=== PATIENT | male | born 1990 | race Caucasian/White ===

== ENCOUNTER → 2016-07-17 | Outpatient (CLI) | payer OTHER ==
[~2016-07-17] VITALS: Ht 170.2 cm; Wt 64.9 kg
[~2016-07-17] MED LIST: BUPR15TA PO; GLYCOPYRROLATE INJ 0.2 MG/ML 2 ML VIAL As Ordered ONE; KETOROLAC 60 MG/2 ML VIAL (J1885) As Ordered ONE; LIDOCAINE 2% INJ 100 MG/5 ML SDV (FOR ANES.) As Ordered ONE; MIDAZOLAM INJ 2 MG/2 ML VIAL (J2250) As Ordered ONE; NAPR500T2 PO; NS 1,000 ML IV SCH; OMEP10CASR PO; ONDANSETRON 4MG/2ML VIAL (J2405) As Ordered ONE; PERCOCET 5MG/325MG TAB As Ordered ONE; PROPOFOL 200 MG/20 ML VIAL As Ordered ONE; fentaNYL 100 MCG/2 ML INJECTION (J3010) As Ordered ONE
--- NOTE | 2016-07-17 14:42 | ROOR ---
Patient Name: Max Zhang Procedure Date: 07/17/2016 9:04 AM Date of : 1990 Age: 25 Room: [id number] Gender: Male Note Status: Finalized Procedure: Colonoscopy Indications: Generalized abdominal pain, Change in stool caliber, Constipation Providers: Douglas PIRES MD Referring MD: AARON RESENDIZ MD Requesting Provider: Medicines: Monitored Anesthesia Care Complications: No immediate complications. Procedure: Pre-Anesthesia Assessment: - The heart rate, respiratory rate, oxygen saturations, blood pressure, adequacy of pulmonary ventilation, and response to care were monitored throughout the procedure. The Colonoscope was introduced through the anus and advanced to 3 cm into the ileum. The colonoscopy was performed without difficulty. The patient tolerated the procedure well. The quality of the bowel preparation was good. Findings: The perianal and digital rectal examinations were normal. The terminal ileum appeared normal. Mucosa appears mildly erythematous. Biopsies were taken with a cold forceps for histology. The entire colon appeared otherwise normal on direct and retroflexion views. Impression: - The examined portion of the ileum was normal. - Mildly erythematous mucosa in the entire. Biopsied. - Small internal hemorrhoids. - The entire examined colon is otherwise normal on direct and retroflexion views. Recommendation: - Telephone endoscopist for pathology results in 2 weeks. Douglas Pires MD Douglas PIRES MD 07/17/2016 2:42:09 PM This report has been signed electronically. Number of Addenda: 0 Note Initiated On: 07/17/2016 9:04 AM Estimated Blood Loss: Estimated blood loss: none.
[2016-07-17 15:18] VITALS: BP 138/73
== END ==
LOC: M OPP 12:21
PROVIDERS: ATTEND Internal Medicine Gastroenterology
DX: R10.84 Generalized abdominal pain (principal); R19.5 Other fecal abnormalities; K59.00 Constipation, unspecified; K62.89 Other specified diseases of anus and rectum; K63.89 Other specified diseases of intestine; K64.8 Other hemorrhoids; Z72.0 Tobacco use; K21.9 Gastro-esophageal reflux disease without esophagitis; F32.9 Major depressive disorder, single episode, unspecified; Z79.899 Other long term (current) drug therapy

== ENCOUNTER 2016-12-28 10:56 | Emergency (ER) | payer OTHER ==
[~2016-12-28] VITALS: Ht 170.2 cm; Wt 58.9 kg
[~2016-12-28 10:56] MED LIST changes: -GLYCOPYRROLATE INJ 0.2 MG/ML 2 ML VIAL As Ordered ONE; -KETOROLAC 60 MG/2 ML VIAL (J1885) As Ordered ONE; -LIDOCAINE 2% INJ 100 MG/5 ML SDV (FOR ANES.) As Ordered ONE; -MIDAZOLAM INJ 2 MG/2 ML VIAL (J2250) As Ordered ONE; -NAPR500T2 PO; +NAPR500T3 PO; -NS 1,000 ML IV SCH; -ONDANSETRON 4MG/2ML VIAL (J2405) As Ordered ONE; -PERCOCET 5MG/325MG TAB As Ordered ONE; -PROPOFOL 200 MG/20 ML VIAL As Ordered ONE; -fentaNYL 100 MCG/2 ML INJECTION (J3010) As Ordered ONE
--- NOTE | 2016-12-28 12:55 | REP ---
Clinical: Trauma . Technique: AP, lateral, bilateral oblique views left ankle . Findings: No acute fracture or dislocation. Skeletal structures and joint spaces are intact and normal. Ankle mortise appears stable. No subcutaneous emphysema or radiodense foreign body. Impression: Normal left ankle radiograph series. No acute fracture or dislocation. Signed by Jonny Naidu MD 12/28/2016 12:47 P
[2016-12-28 13:22] VITALS: BP 130/60
[2016-12-28] MEDS ORDERED: TYLE325T5 PO (13:31)
[2016-12-28] MEDS ORDERED: NAPR500T3 PO (13:32)
[2016-12-28] MEDS ORDERED: KETOROLAC 60 MG/2 ML VIAL (J1885) IM ONE (13:45)
== END 2016-12-28 14:14 | disposition home or self-care (01) ==
LOC: M ED 10:56
DX: S93.402A Sprain of unspecified ligament of left ankle, initial encounter (principal); X58.XXXA Exposure to other specified factors, initial encounter; Y92.89 Other specified places as the place of occurrence of the external cause; Y93.89 Activity, other specified; Y99.8 Other external cause status; F17.200 Nicotine dependence, unspecified, uncomplicated

== ENCOUNTER 2016-12-29 06:23 | Inpatient (IN) | payer OTHER ==
[~2016-12-29] VITALS: Ht 170.2 cm; Wt 59.1 kg
[~2016-12-29 06:23] MED LIST changes: +TYLE325T5 PO
[2016-12-29 06:57] LABS: MEAN CORPUSCULAR HEMOGLOBIN 32.7 pg (27.0-33.0); MEAN CORPUSCULAR HGB CONC 34.6 g/dl (32.0-36.5); MEAN CORPUSCULAR VOLUME 94.5 fl (80.0-96.0); RED CELL DISTRIBUTION WIDTH 12.3 % (11.5-14.5); WHITE BLOOD COUNT 13.2 K/mm3 (4.0-10.0)
[2016-12-29 07:28] LABS: METHADONE URINE NEGATIVE (NEGATIVE)
[2016-12-29 07:31] LABS: ALBUMIN 4.3 GM/DL (3.2-5.2); ALBUMIN/GLOBULIN RATIO 1.19 (1.00-1.93); ALKALINE PHOSPHATASE 95 U/L (45-117); ALT/SGPT 31 U/L (12-78); ANION GAP 9 MEQ/L (8-16); AST/SGOT 34 U/L (15-37); BILIRUBIN,DIRECT 0.1 MG/DL (0.0-0.2); BILIRUBIN,TOTAL 0.4 MG/DL (0.2-1.0); BLOOD UREA NITROGEN 21 MG/DL (7-18); CALCIUM LEVEL 9.5 MG/DL (8.5-10.1); CARBON DIOXIDE LEVEL 25 MEQ/L (21-32); CHLORIDE LEVEL 107 MEQ/L (98-107); CREATININE FOR GFR 0.98 MG/DL (0.70-1.30); GLOMERULAR FILTRATION RATE > 60.0 (>60); GLUCOSE, FASTING 90 MG/DL (70-105); POTASSIUM SERUM 3.5 MEQ/L (3.5-5.1); SODIUM LEVEL 141 MEQ/L (136-145); TOTAL PROTEIN 7.9 GM/DL (6.4-8.2)
--- NOTE | 2016-12-29 07:39 | REP ---
Clinical: Pain . Technique: AP, lateral, bilateral oblique views. Findings: No acute fracture or dislocation. Skeletal structures and joint spaces are intact and normal. Ankle mortise appears stable. No subcutaneous emphysema or radiodense foreign body. Impression: Normal left ankle radiograph series. Signed by Jonny Naidu MD 12/29/2016 07:31 A
[2016-12-29] MEDS ORDERED: MAALOX 30 ML SUSP *UDC PO PRN (08:30)
[2016-12-29] MEDS ORDERED: MOM 30ML SUSPENSION UDC PO PRN (08:30)
[2016-12-29] MEDS ORDERED: QUEtiapine FUMARATE 200 MG TAB PO ONE (09:00)
[2016-12-29] MEDS ORDERED: LORazepam 0.5 MG TAB PO ONE (09:30)
[2016-12-29 11:23] VITALS: BP 136/90
[2016-12-29] MEDS: NICOTINE 21MG/24HR 1 EA TRANSDERMAL TD SCH (12:27)
[2016-12-29] MEDS: QUEtiapine FUMARATE 200 MG TAB PO SCH ×3 (12:35→20:51)
[2016-12-29 18:00] VITALS: BP 126/58
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
[2016-12-30 06:27] VITALS: BP 148/91
[2016-12-30] MEDS: NICOTINE 21MG/24HR 1 EA TRANSDERMAL TD SCH (06:37)
--- NOTE | 2016-12-30 08:33 | HPEPDOC ---
Medical History and Physical Date of Admission Dec 29, 2016 at 08:26 History and Physical PCP: [facility] ATTENDING: Dr. Douglas Acevedo HPI: 26yoM admitted to [facility] for unspecified psychotic disorder, being medically examined today. The patient was evaluated in the emergency department 12/28/16 related to twisting his left ankle. X-ray of the left ankle was unremarkable. Aircast was recommended with outpatient follow-up with PCP. The patient has been ambulating and is bearing weight. Denies any fevers, chills, weakness, fatigue, EUCEDA, CP, SOB, cough, palpitations, abdominal pain, N/V/D or changes in bowel or bladder habits. PMHx: ADHD Anxiety Depression History of SI Substance use Tobacco use History of left ankle injury in the past related to skateboarding. Recurrent left ankle injury 12/22/16. PSHX: Adenoidectomy Tympanostomy tubes SOCHX: Resides in: [facility], living with his mother. Marital Status: Single Kids: None Employment: [employer] Tobacco use: 2 packs per day ETOH: Twice per week 3 drinks Illicit Drugs: Marijuana daily. Cocaine in the past. IV Drug Use: Denies Tattoos done unprofessionally: 1 FAMHX: Mother: Alive, well. Father: Unknown Siblings: 1 brother Alive, depression Children: None Unexpected deaths due to medical reasons: None. ROS: As noted in HPI, otherwise 11pt ROS of systems reviewed and unremarkable. PE: GEN: 26 yo M, appears stated age. Well-nourished, well developed. No acute distress. Alert and oriented x 3. Avoids eye contact. Rapid pressured speech. Tangential. HEENT: Normocephalic, atraumatic. Pupils are equal, round, and reactive to light. Extraocular movements are intact. No nystagmus appreciated. Sclera are nonicteric. Conjunctiva without injection. Nose midline. Nasal turbinates without bogginess. EACs both patent BL. TMs both visualized and germain with good cone of light, no bulging or erythema. No facial asymmetry. Moist mucous membranes. Dentition fair. Pharynx pink and moist, no cobblestoning. Neck supple , trachea midline. No lymphadenopathy or thyromegaly appreciated. CHEST: Regular rate and rhythm, +S1, +S2 LUNGS: Clear to auscultation bilaterally. No wheezes, rales, or rhonchi. Breathing appears symmetric and easy. Patient is speaking in full sentences. No accessory muscle use. ABD: Round, soft, non-tender, non-distended. +Bowel sounds throughout. No rebound or guarding. No costovertebral angle tenderness. EXT: Pulses 2+ bilaterally dorsalis pedis and radial. No lower extremity edema appreciated. Mild left inner ankle discomfort with palpation. No erythema. No edema. No ecchymosis noted. SKIN: Jay, dry, warm. Capillary refill <2sec. No rashes. NEURO: Alert and oriented x 3. Cranial nerves III-XII are intact. No focal deficits appreciated. EKG: pending. XR left ankle. Normal left ankle radiograph series A&P: 26yoM admitted to [facility] for unspecified psychotic disorder 1. Psych. Plan per Psychiatry. Obtain baseline EKG to assure the safety of psychiatric medications as they can prolong the QT interval. 2. Nicotine dependence. Patch available. 3. Recent left ankle sprain. Apply Aircast. Elevate if needed. Apply ice if needed. Pt states he cannot tolerate Tylenol or NSAID. 4. Follow up with PCP on discharge. 5. Substance use. Per psychiatry. 6. Leukocytosis. Patient is afebrile. Asymptomatic. Recheck CBC in a.m. 7. History of tattoo done unprofessionally. Patient agrees to HIV and hepatitis screening. 8. [place] health safety engineer present throughout exam. Vital Signs Vital Signs Date Time Temp Pulse Resp B/P (MAP) Pulse Ox O2 Delivery O2 Flow Rate FiO2 12/30/16 06:27 97.4 94 20 148/91 (110) 12/29/16 09:45 97 Room Air Laboratory Data Labs 24H Item Value Date Time Sodium Level 141 MEQ/L 12/29/16 0646 Potassium Level 3.5 MEQ/L 12/29/16 0646 Chloride Level 107 MEQ/L 12/29/16 0646 Carbon Dioxide Level 25 MEQ/L 12/29/16 0646 Anion Gap 9 MEQ/L 12/29/16 0646 Blood Urea Nitrogen 21 MG/DL H 12/29/16 0646 Creatinine 0.98 MG/DL 12/29/16 0646 Glomerular Filtration Rate > 60.0 12/29/16 0646 Fasting Glucose 90 MG/DL 12/29/16 0646 Calcium Level 9.5 MG/DL 12/29/1646 Total Bilirubin 0.4 MG/DL 12/29/1646 Direct Bilirubin 0.1 MG/DL 12/29/16 0646 Aspartate Amino Transf (AST/SGOT) 34 U/L 12/29/16 0646 Alanine Aminotransferase (ALT/SGPT) 31 U/L 12/29/16 0646 Alkaline Phosphatase 95 U/L 12/29/16 0646 Total Protein 7.9 GM/DL 12/29/1646 Albumin 4.3 GM/DL 12/29/16 0646 Albumin/Globulin Ratio 1.19 12/29/16 0646 Thyroid Stimulating Hormone (TSH) 1.840 uIU/ML 12/29/16 0646 White Blood Count 13.2 K/mm3 H 12/29/16 0646 Red Blood Count 4.84 M/mm3 12/29/16 0646 Hemoglobin 15.8 g/dl 12/29/16 0646 Hematocrit 45.7 % 12/29/1646 Mean Corpuscular Volume 94.5 fl 12/29/16 0646 Mean Corpuscular Hemoglobin 32.7 pg 12/29/1646 Mean Corpuscular Hemoglobin Concent 34.6 g/dl 12/29/16 0646 Red Cell Distribution Width 12.3 % 12/29/16 0646 Platelet Count 351 k/mm3 12/29/16 0646 Salicylates Level 3.7 MG/DL L 12/29/1646 Urine Opiates Screen NEGATIVE 12/29/1638 Urine Methadone Screen NEGATIVE 12/29/1638 Acetaminophen Level < 2.0 UG/ML L 12/29/1646 Urine Barbiturates Screen NEGATIVE 12/29/1638 Urine Phencyclidine Screen NEGATIVE 12/29/1638 Urine Amphetamines Screen NEGATIVE 12/29/1638 Urine Benzodiazepines Screen NEGATIVE 12/29/1638 Urine Cocaine Metabolite Screen NEGATIVE 12/29/1638 Urine Cannabinoids Screen POSITIVE H 12/29/1638 Ethyl Alcohol Level < 0.003 % 12/29/16 0646 Home Medications No Active Prescriptions or Reported Meds Allergies Coded Allergies: Acetaminophen (Verified Adverse Reaction, Mild, NAUSEA, 12/29/16) Ibuprofen (Verified Adverse Reaction, Mild, NAUSEA, 12/29/16) Naproxen (Verified Adverse Reaction, Mild, NAUSEA, 12/29/16) Peggy Ware Dec 30, 2016 08:33
[2016-12-30] MEDS ORDERED: QUEtiapine FUMARATE 100 MG TAB PO SCH (09:00)
[2016-12-30 09:42] LABS: MEAN CORPUSCULAR HEMOGLOBIN 33.1 pg (27.0-33.0); MEAN CORPUSCULAR HGB CONC 34.6 g/dl (32.0-36.5); MEAN CORPUSCULAR VOLUME 95.5 fl (80.0-96.0); RED CELL DISTRIBUTION WIDTH 12.2 % (11.5-14.5); WHITE BLOOD COUNT 10.8 K/mm3 (4.0-10.0)
[2016-12-30] MEDS: OLANZapine 5 MG TAB PO PRN ×3 (10:24→22:45)
[2016-12-30] MEDS: NICOTINE POLACRILEX 2 MG GUM PO PRN ×2 (11:58→16:04)
[2016-12-30] MEDS: LIDOCAINE 5% (LIDODERM) PATCH TD SCH (11:59)
[2016-12-30] MEDS: QUEtiapine FUMARATE 200 MG TAB PO SCH ×3 (13:33→20:39)
[2016-12-30] MEDS ORDERED: QUEtiapine FUMARATE 200 MG TAB PO SCH ×2 (16:00→21:00)
[2016-12-30 18:00] VITALS: BP 130/68
[2016-12-30] MEDS: **NOTE PATIENT COMMENT** MISC XX SCH (21:00)
[2016-12-30] MEDS: traZODone 50 MG TAB PO PRN (22:45)
--- NOTE | 2016-12-30 23:15 | ECGEPIP ---
Stationary ECG Study 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 Electronically Signed On 12-30-2016 23:15:09 EDT by Douglas Torres
[2016-12-31] MEDS: NICOTINE POLACRILEX 2 MG GUM PO PRN ×2 (02:41→09:00)
[2016-12-31] MEDS: OLANZapine 5 MG TAB PO PRN ×3 (02:45→19:52)
[2016-12-31 06:21] VITALS: BP 139/99
[2016-12-31] MEDS: DIVALPROEX 250MG *ER* TAB PO SCH ×2 (09:00→20:41)
[2016-12-31] MEDS: LIDOCAINE 5% (LIDODERM) PATCH TD SCH (09:00)
[2016-12-31] MEDS: PALIPERIDONE 6 MG ER TAB (INVEGA) PO SCH (09:00)
[2016-12-31] MEDS: LORazepam 1 MG TAB PO SCH ×3 (09:44→20:41)
[2016-12-31] MEDS: NICOTINE 21MG/24HR 1 EA TRANSDERMAL TD SCH (10:24)
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
[2016-12-31 18:00] VITALS: BP 137/82
[2016-12-31] MEDS: PALIPERIDONE 3 MG ER TAB (INVEGA) PO SCH (20:41)
[2016-12-31] MEDS: **NOTE PATIENT COMMENT** MISC XX SCH (20:42)
[2016-12-31] MEDS: traZODone 50 MG TAB PO PRN (21:44)
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
[2017-01-01] MEDS: OLANZapine 5 MG TAB PO PRN ×2 (01:53→10:00)
[2017-01-01] MEDS: NICOTINE 21MG/24HR 1 EA TRANSDERMAL TD SCH (06:03)
[2017-01-01 07:00] VITALS: BP 128/74
[2017-01-01] MEDS: DIVALPROEX 250MG *ER* TAB PO SCH ×2 (08:11→20:27)
[2017-01-01] MEDS: LORazepam 1 MG TAB PO SCH ×4 (08:11→20:27)
[2017-01-01] MEDS: PALIPERIDONE 6 MG ER TAB (INVEGA) PO SCH (08:11)
[2017-01-01] MEDS: LIDOCAINE 5% (LIDODERM) PATCH TD SCH (08:12)
[2017-01-01 18:00] VITALS: BP 125/76
[2017-01-01] MEDS: QUEtiapine FUMARATE 25 MG TAB PO SCH (20:27)
[2017-01-01] MEDS: PALIPERIDONE 3 MG ER TAB (INVEGA) PO SCH (20:28)
[2017-01-01] MEDS: **NOTE PATIENT COMMENT** MISC XX SCH (20:29)
[2017-01-02] MEDS: OLANZapine 5 MG TAB PO PRN ×2 (05:33→09:44)
[2017-01-02 07:10] VITALS: BP 113/67
[2017-01-02 07:23] VITALS: BP 113/67
[2017-01-02] MEDS: LIDOCAINE 5% (LIDODERM) PATCH TD SCH (08:18)
[2017-01-02] MEDS: PALIPERIDONE 6 MG ER TAB (INVEGA) PO SCH (08:19)
[2017-01-02] MEDS: DIVALPROEX 250MG *ER* TAB PO SCH ×2 (08:19→20:19)
[2017-01-02] MEDS: LORazepam 1 MG TAB PO SCH ×4 (08:20→20:18)
[2017-01-02] MEDS: NICOTINE 21MG/24HR 1 EA TRANSDERMAL TD SCH (08:20)
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
--- NOTE | 2017-01-02 15:34 | MHIPNPDOC ---
[facility] Progress Note Progress Note DATE OF SERVICE: 01/02/17 INTERVAL HISTORY: Medication Side effects: Patient reports feeling better since he has been on his medications. He says he is beginning to think that what is important is to take care of himself instead of going back to another relationship or to the previous one, because he could get hurt Behavior: Patient has been less intrusive, less loud and he hasn't made sexually inappropriate comments to staff or peers. Group Attendance: He has been attending groups and he feels better at the activity group. Psychiatric Symptom change: He speech is slightly less pressured, he has less psychomotor agitation, he is able to sit still for longer periods of time, he still has racing thoughts but they are less intense and less rapid, he is less grandiose and less impulsive. VITAL SIGNS: See below. NEW TEST RESULTS: See below CURRENT MEDICATIONS: See below. MENTAL STATUS EXAMINATION: General: Alert, cooperative with interview, with good eye contact, good rapport , dressed in personal clothes with good hygiene Speech: Pressure speech, circumstantial Thought processes: Slightly disorganized Thought content: Perseveres about his failed relationship Abstract reasoning, and computation: Unable to assess at this time due to patient's mental status Description of associations: There is some loosening of associations Description of abnormal or psychotic thoughts: He still has grandiose delusions but they're less intense and less frequent. Has magical thinking, denies current auditory or visual hallucinations and denies suicidal or homicidal thoughts. Judgment: Poor Insight: Poor Orientation: Oriented 3 Recent and remote memory: Intact Attention span and concentration: Limited Fund of knowledge: Fair Mood: Less expansive, slightly depressed. Affect: Labile DIAGNOSES: 1. Bipolar disorder, mixed episode. 2. Rule out personality disorder. 3. . ASSESSMENT: Patient has had a good response to medications, we will decrease Depakote slightly and will obtain blood for liver profile, lipase and amylase. Patient is improving, he is becoming more insightful. MANAGEMENT PLAN: Medications: Depakote 750 mg by mouth twice a day but will decrease on Thursday to 500 mg by mouth every morning and 750 mg by mouth daily at bedtime. Will continue with paliperidone 6 mg by mouth daily at bedtime and 3 mg by mouth every morning will continue with Ativan 1 mg by mouth 3 times a day for anxiety and agitation, Zyprexa 5 mg by mouth every 4 hours when necessary for anxiety and agitation. Psychotherapy: Will encourage group attendance Social: Patient is improving his social skills. He hasn't been inappropriate with staff or with peers. Misc: -- Disposition: Patient will need more time at the inpatient mental health unit for individual and group psychotherapy for medications to improve. TIME SPENT: 30 minutes. Vital Signs Vital Signs Date Time Temp Pulse Resp B/P (MAP) Pulse Ox O2 Delivery O2 Flow Rate FiO2 01/02/17 07:23 98.8 96 20 113/67 (82) 12/29/16 09:45 97 Room Air Current Medications Current Medications Al Hydrox/Mg Hydrox/Simethicone (Mylanta) 30 ml Q4HP PRN PO HEARTBURN/ INDIGESTION; Start 12/29/16 at 08:30; Stop 01/28/17 at 08:29 Aripiprazole (AbiLIFY) 2.5 mg QAM PO Last administered on 12/30/16 08:01; Start 12/30/16 at 09:00; Stop 12/30/16 at 11:41; Status DC Divalproex Sodium (Depakote Er) 750 mg BID PO Last administered on 01/02/17 08 :19; Start 12/31/16 at 09:00; Stop 01/30/17 at 08:59 Home Med (Med Rec Complete!) ASDIRECTED XX ; Start 12/29/16 at 08:30; Stop 04/07 at 08:30; Status DC Lidocaine (Lidoderm Patch) 1 patch DAILY TD Last administered on 12/30/16 11: 59; Start 12/30/16 at 09:00; Stop 01/29/17 at 08:59 Lorazepam (Ativan) 1 mg QID PO Last administered on 01/02/17 13:22; Start at 13:00; Stop 01/07/17 at 08:59 Lorazepam (Ativan) 1 mg TID PO Last administered on 01/01/17 08:11; Start 06/07 at 09:00; Stop 01/01/17 at 10:18; Status DC Magnesium Hydroxide (Milk Of Magnesia) 30 ml DAILYPRN PRN PO CONSTIPATION; Start 12/29/16 at 08:30; Stop 01/28/17 at 08:29 Nicotine (Nicoderm Cq 21mg) 1 patch DAILY TD Last administered on 12/30/16 06: 37; Start 12/29/16 at 09:00; Stop 12/30/16 at 11:45; Status DC Nicotine (Nicoderm Cq 21mg) 1 patch DAILY TD Last administered on 01/02/17 08: 20; Start 12/31/16 at 09:00; Stop 01/30/17 at 08:59 Nicotine (Nicorette) 2 mg Q4HP PRN PO NICOTINE WITHDRAWAL Last administered on 12/31/16 09:00; Start 12/30/16 at 11:45; Stop 12/31/16 at 10:16; Status DC Non-Formulary Medication ( See Comment Field Below ) REMOVE LIDODERM PATCH DAILY@21 XX ; Start 12/30/16 at 21:00; Stop 01/29/17 at 20:59 Olanzapine (ZyPREXA) 5 mg Q4HP PRN PO AGITATION Last administered on 01/02/17 09:44; Start 12/29/16 at 08:30; Stop 01/28/17 at 08:29 Paliperidone (Invega) 3 mg QHS PO Last administered on 01/01/17 20:28; Start 12/31/16 at 21:00; Stop 01/30/17 at 20:59 Paliperidone (Invega) 6 mg DAILY PO Last administered on 01/02/17 08:19; Start 12/31/16 at 09:00; Stop 01/30/17 at 08:59 Quetiapine Fumarate (SEROquel) 75 mg QHS PO Last administered on 01/01/17 20: 27; Start 01/01/17 at 21:00; Stop 01/31/17 at 20:59 Quetiapine Fumarate (SEROquel) 100 mg TID PO Last administered on 12/30/16 08: 28; Start 12/30/16 at 09:00; Stop 12/30/16 at 11:39; Status DC Quetiapine Fumarate (SEROquel) 200 mg QHS PO ; Start 12/30/16 at 21:00; Stop 04/07 at 20:59; Status Cancel Quetiapine Fumarate (SEROquel) 200 mg QID PO Last administered on 12/30/16 20: 39; Start 12/30/16 at 13:00; Stop 12/31/16 at 08:55; Status DC Quetiapine Fumarate (SEROquel) 200 mg TID PO Last administered on 12/29/16 20: 51; Start 12/29/16 at 09:00; Stop 12/29/16 at 23:03; Status DC Quetiapine Fumarate (SEROquel) 200 mg TID PO ; Start 12/30/16 at 16:00; Stop 04/07 at 15:59; Status Cancel Trazodone HCl (Desyrel) 50 mg QHSP PRN PO INSOMNIA Last administered on 21:44; Start 12/29/16 at 08:30; Stop 01/01/17 at 10:18; Status DC Allergies Coded Allergies: Acetaminophen (Verified Adverse Reaction, Mild, NAUSEA, 12/29/16) Ibuprofen (Verified Adverse Reaction, Mild, NAUSEA, 12/29/16) Naproxen (Verified Adverse Reaction, Mild, NAUSEA, 12/29/16) REG TITUS MD Jan 02, 2017 15:34
[2017-01-02 18:00] VITALS: BP 126/71
[2017-01-02] MEDS: QUEtiapine FUMARATE 25 MG TAB PO SCH (20:18)
[2017-01-02] MEDS: PALIPERIDONE 3 MG ER TAB (INVEGA) PO SCH (20:18)
[2017-01-02] MEDS: **NOTE PATIENT COMMENT** MISC XX SCH (20:19)
[2017-01-03] MEDS: OLANZapine 5 MG TAB PO PRN ×3 (00:24→19:41)
[2017-01-03 06:32] VITALS: BP 121/67
[2017-01-03] MEDS: LIDOCAINE 5% (LIDODERM) PATCH TD SCH (08:28)
[2017-01-03] MEDS: NICOTINE 21MG/24HR 1 EA TRANSDERMAL TD SCH (08:30)
[2017-01-03] MEDS: DIVALPROEX 250MG *ER* TAB PO SCH ×2 (08:30→21:31)
[2017-01-03] MEDS: PALIPERIDONE 6 MG ER TAB (INVEGA) PO SCH (08:30)
[2017-01-03] MEDS: LORazepam 1 MG TAB PO SCH ×4 (08:30→21:29)
[2017-01-03 18:00] VITALS: BP 117/77
[2017-01-03] MEDS: **NOTE PATIENT COMMENT** MISC XX SCH (21:00)
[2017-01-03] MEDS: QUEtiapine FUMARATE 25 MG TAB PO SCH (21:29)
[2017-01-03] MEDS: PALIPERIDONE 3 MG ER TAB (INVEGA) PO SCH (21:29)
[2017-01-04 06:19] VITALS: BP 126/79
[2017-01-04] MEDS: OLANZapine 5 MG TAB PO PRN ×2 (06:41→11:49)
[2017-01-04] MEDS: LIDOCAINE 5% (LIDODERM) PATCH TD SCH (08:12)
[2017-01-04] MEDS: NICOTINE 21MG/24HR 1 EA TRANSDERMAL TD SCH (08:14)
[2017-01-04] MEDS: LORazepam 1 MG TAB PO SCH ×4 (08:14→21:36)
[2017-01-04] MEDS: PALIPERIDONE 6 MG ER TAB (INVEGA) PO SCH (08:14)
[2017-01-04] MEDS: DIVALPROEX 250MG *ER* TAB PO SCH ×2 (08:14→21:36)
[2017-01-04] MEDS: NYSTATIN 500,000 U/5 ML SUSP UDC SS SCH ×2 (11:23→17:02)
[2017-01-04 18:00] VITALS: BP 125/68
[2017-01-04] MEDS: **NOTE PATIENT COMMENT** MISC XX SCH (21:00)
[2017-01-04] MEDS: PALIPERIDONE 3 MG ER TAB (INVEGA) PO SCH (21:36)
[2017-01-04] MEDS: QUEtiapine FUMARATE 25 MG TAB PO SCH (21:36)
[2017-01-05] MEDS: NYSTATIN 500,000 U/5 ML SUSP UDC SS SCH ×5 (05:36→23:09)
[2017-01-05 06:00] VITALS: BP 125/68
[2017-01-05] MEDS: LORazepam 1 MG TAB PO SCH ×2 (07:47→12:01)
[2017-01-05] MEDS: PALIPERIDONE 6 MG ER TAB (INVEGA) PO SCH (07:47)
[2017-01-05] MEDS: NICOTINE 21MG/24HR 1 EA TRANSDERMAL TD SCH (07:48)
[2017-01-05] MEDS: DIVALPROEX 250MG *ER* TAB PO SCH ×2 (07:48→21:13)
[2017-01-05] MEDS: LIDOCAINE 5% (LIDODERM) PATCH TD SCH (07:50)
[2017-01-05] MEDS: OLANZapine 5 MG TAB PO PRN (16:30)
[2017-01-05 18:00] VITALS: BP 141/97
[2017-01-05] MEDS: NICOTINE POLACRILEX 2 MG GUM PO PRN (18:58)
[2017-01-05 19:49] LABS: ALBUMIN 3.9 GM/DL (3.2-5.2); ALBUMIN/GLOBULIN RATIO 1.18 (1.00-1.93); BILIRUBIN,DIRECT 0.1 MG/DL (0.0-0.2); BILIRUBIN,TOTAL 0.4 MG/DL (0.2-1.0); TOTAL PROTEIN 7.2 GM/DL (6.4-8.2)
[2017-01-05] MEDS: **NOTE PATIENT COMMENT** MISC XX SCH (21:00)
[2017-01-05] MEDS: QUEtiapine FUMARATE 25 MG TAB PO SCH (21:13)
[2017-01-05] MEDS: PALIPERIDONE 3 MG ER TAB (INVEGA) PO SCH (21:13)
[2017-01-06] MEDS: NICOTINE POLACRILEX 2 MG GUM PO PRN ×4 (06:22→19:48)
[2017-01-06] MEDS: NYSTATIN 500,000 U/5 ML SUSP UDC SS SCH ×4 (06:22→23:09)
[2017-01-06 06:42] VITALS: BP 124/70
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
[2017-01-06] MEDS: DIVALPROEX 250MG *ER* TAB PO SCH ×2 (08:03→20:45)
[2017-01-06] MEDS: PALIPERIDONE 6 MG ER TAB (INVEGA) PO SCH (08:03)
[2017-01-06] MEDS: LIDOCAINE 5% (LIDODERM) PATCH TD SCH (08:46)
[2017-01-06] MEDS ORDERED: LORazepam 0.5 MG TAB PO PRN (09:00)
[2017-01-06 10:53] LABS: ALBUMIN 4.1 GM/DL (3.2-5.2); ALBUMIN/GLOBULIN RATIO 1.14 (1.00-1.93); ALKALINE PHOSPHATASE 91 U/L (45-117); ALT/SGPT 21 U/L (12-78); AMYLASE 65 U/L (25-115); AST/SGOT 10 U/L (15-37); BILIRUBIN,DIRECT < 0.1 MG/DL (0.0-0.2); BILIRUBIN,TOTAL 0.4 MG/DL (0.2-1.0); TOTAL PROTEIN 7.7 GM/DL (6.4-8.2)
[2017-01-06] MEDS: OLANZapine 5 MG TAB PO PRN (16:12)
[2017-01-06 18:00] VITALS: BP_SYST 130
--- NOTE | 2017-01-06 20:25 | IPN ---
DATE: 01/06/2017 26-year-old male with history of bipolar disorder, manic episode. CURRENT MEDICATIONS: - lorazepam 0.5 mg by mouth twice a day - olanzapine 5 mg by mouth every 4 hours for agitation - paliperidone 3 mg by mouth nightly - paliperidone 6 mg by mouth every morning - Seroquel 75 mg by mouth daily - Depakote ER 750 mg by mouth twice a day MENTAL STATUS EXAMINATION: The patient is alert, oriented to self and person, cooperative and pleasant. He has good eye contact, his speech is less pressured and less rapid. His thought process is more organized, less incoherent. His thought content is more goal directed and more centered in reality. Abstract reasoning and computation is fair. Description of associations: Loose but not as much as they were before. Description of abnormal or psychotic thoughts: He has a little bit of grandiose delusions, but his paranoid delusions have decreased and he is not responding to internal stimuli, he denies auditory or visual hallucinations at this time and he also denies suicidality or homicidal ideation. His judgment and insight are slowly improving, his impulse control has been fair. Attention and concentration are improving. Language is fair. Fund of knowledge: Unable to assess at this time. His mood and affect are getting back to normal, his mood is less elated and expansive and his affect is less labile. ASSESSMENT: The patient has improved, possible discharge will be in 48 hours. Will taper, a little bit, medications for him to be discharged. Pending lab results. Will followup.
[2017-01-06] MEDS: PALIPERIDONE 3 MG ER TAB (INVEGA) PO SCH (20:45)
[2017-01-06] MEDS: QUEtiapine FUMARATE 25 MG TAB PO SCH (20:45)
[2017-01-06] MEDS: **NOTE PATIENT COMMENT** MISC XX SCH (21:00)
[2017-01-07] MEDS: NICOTINE POLACRILEX 2 MG GUM PO PRN ×5 (00:12→20:23)
[2017-01-07] MEDS: NYSTATIN 500,000 U/5 ML SUSP UDC SS SCH ×4 (06:15→23:11)
[2017-01-07 06:37] VITALS: BP 135/84
[2017-01-07 06:45] VITALS: BP 135/84
[2017-01-07] MEDS: LIDOCAINE 5% (LIDODERM) PATCH TD SCH ×2 (08:08→13:18)
[2017-01-07] MEDS: PALIPERIDONE 6 MG ER TAB (INVEGA) PO SCH (08:09)
[2017-01-07] MEDS: DIVALPROEX 250MG *ER* TAB PO SCH ×2 (08:09→20:24)
[2017-01-07] MEDS: OLANZapine 5 MG TAB PO PRN (09:39)
[2017-01-07] MEDS ORDERED: LIDOCAINE 5% (LIDODERM) PATCH TD ONE (13:30)
--- NOTE | 2017-01-07 15:42 | MHIPNPDOC ---
[facility] Progress Note Progress Note DATE OF SERVICE: 01/07/17 INTERVAL HISTORY: Medication Side effects: Denies medication side effects Behavior: He has been compliant with rules, has been respectful to staff and peers, no angry outbursts. Group Attendance: Has been attending groups and has been able to remain still and participate. Psychiatric Symptom change: His speech is less pressured, he is less hyperactive , his insight and judgment have improved a little, his impulse control is much better. VITAL SIGNS: See below. NEW TEST RESULTS: See below CURRENT MEDICATIONS: See below. MENTAL STATUS EXAMINATION: General: Alert, cooperative, pleasant, good eye contact, good hygiene. Speech: Less pressured, more coherent Thought processes: More organized and coherent Thought content: More coherent Abstract reasoning, and computation: Fair Description of associations: Good Description of abnormal or psychotic thoughts: Denies auditory or visual hallucinations, denies suicidal or homicidal thoughts and denies thought delusions. He is not responding to internal stimuli. Judgment: Improving Insight: Improving Orientation: Oriented to place and person, partially to date and time Recent and remote memory: Fair Attention span and concentration: Improved Fund of knowledge: Fair Mood: "I'm happy, I want to get out of here because I want to go back to my sexy boyfriend" Affect: Congruent to mood, full range, appropriate. DIAGNOSES: 1. Bipolar disorder, manic episode. 2. Alcohol use disorder. 3. Marijuana use disorder. ASSESSMENT: Patient has had a good response to medications, today Ativan was discontinued because this loan underwriter doesn't want to discharge him on a benzodiazepine because he has substance abuse problems. Zyprexa was decreased to 5 mg by mouth every 12 hours when necessary for agitation. MANAGEMENT PLAN: Medications: Depakote ER 750 mg by mouth twice a day, paliperidone 3 mg by mouth every morning and 6 mg by mouth daily at bedtime, Zyprexa 5 mg by mouth twice a day when necessary for agitation, Seroquel 100 mg by mouth daily at bedtime for insomnia, nicotine gum every 2 hours for smoking cessation, lidocaine patch applied to his left ankle. Depakote levels were ordered today. Psychotherapy: Continue to encourage group attendance Social: He has been socially appropriate with peers and staff. 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 TIME SPENT: 30 minutes. Vital Signs Vital Signs Date Time Temp Pulse Resp B/P (MAP) Pulse Ox O2 Delivery O2 Flow Rate FiO2 01/07/17 08:20 Room Air 01/07/17 06:45 97.9 107 18 135/84 (101) Laboratory Data 24H Labs Laboratory Tests 2 01/07/17 11:20: Valproic Acid (Depakene) Level 107.8H Current Medications Current Medications Al Hydrox/Mg Hydrox/Simethicone (Mylanta) 30 ml Q4HP PRN PO HEARTBURN/ INDIGESTION Last administered on 01/05/17 23:08; Start 12/29/16 at 08:30; Stop 01/28/17 at 08:29 Aripiprazole (AbiLIFY) 2.5 mg QAM PO Last administered on 12/30/16 08:01; Start 12/30/16 at 09:00; Stop 12/30/16 at 11:41; Status DC Divalproex Sodium (Depakote Er) 750 mg BID PO Last administered on 01/07/17 08 :09; Start 12/31/16 at 09:00; Stop 01/30/17 at 08:59 Home Med (Med Rec Complete!) ASDIRECTED XX ; Start 12/29/16 at 08:30; Stop 04/07 at 08:30; Status DC Lidocaine (Lidoderm Patch) 1 patch DAILY TD Last administered on 01/07/17 13: 18; Start 12/30/16 at 09:00; Stop 01/29/17 at 08:59 Lorazepam (Ativan) 0.5 mg BIDP PRN PO ANXIETY/AGITATION; Start 01/06/17 at 09: 00; Stop 01/13/17 at 08:59; Status Cancel Lorazepam (Ativan) 1 mg QID PO Last administered on 01/05/17 12:01; Start at 13:00; Stop 01/05/17 at 12:07; Status DC Lorazepam (Ativan) 1 mg TID PO Last administered on 01/01/17 08:11; Start 06/07 at 09:00; Stop 01/01/17 at 10:18; Status DC Magnesium Hydroxide (Milk Of Magnesia) 30 ml DAILYPRN PRN PO CONSTIPATION; Start 12/29/16 at 08:30; Stop 01/28/17 at 08:29 Nicotine (Nicoderm Cq 21mg) 1 patch DAILY TD Last administered on 12/30/16 06: 37; Start 12/29/16 at 09:00; Stop 12/30/16 at 11:45; Status DC Nicotine (Nicoderm Cq 21mg) 1 patch DAILY TD Last administered on 01/05/17 07: 48; Start 12/31/16 at 09:00; Stop 01/05/17 at 16:34; Status DC Nicotine (Nicorette) 2 mg Q4HP PRN PO NICOTINE WITHDRAWAL Last administered on 12/31/16 09:00; Start 12/30/16 at 11:45; Stop 12/31/16 at 10:16; Status DC Nicotine (Nicorette) 2 mg Q4HP PRN PO NICOTINE WITHDRAWAL Last administered on 01/07/17 12:07; Start 01/05/17 at 16:30; Stop 02/04/17 at 16:29 Non-Formulary Medication ( See Comment Field Below ) REMOVE LIDODERM PATCH DAILY@21 XX ; Start 12/30/16 at 21:00; Stop 01/29/17 at 20:59 Non-Formulary Medication ( See Comment Field Below ) REMOVE LIDODERM PATCH DAILY@21 XX ; Start 01/07/17 at 21:00; Stop 01/07/17 at 21:00; Status DC Nystatin (Mycostatin) 5 ml Q6H SS Last administered on 01/07/17 12:05; Start 01/04/17 at 12:00; Stop 01/11/17 at 11:59 Olanzapine (ZyPREXA) 5 mg Q12HP PRN PO AGITATION; Start 01/08/17 at 08:30; Stop 01/28/17 at 08:29 Olanzapine (ZyPREXA) 5 mg Q4HP PRN PO AGITATION Last administered on 01/07/17 09:39; Start 12/29/16 at 08:30; Stop 01/07/17 at 10:46; Status DC Paliperidone (Invega) 3 mg QHS PO Last administered on 01/06/17 20:45; Start 12/31/16 at 21:00; Stop 01/30/17 at 20:59 Paliperidone (Invega) 6 mg DAILY PO Last administered on 01/07/17 08:09; Start 12/31/16 at 09:00; Stop 01/30/17 at 08:59 Quetiapine Fumarate (SEROquel) 75 mg QHS PO Last administered on 01/06/17 20: 45; Start 01/01/17 at 21:00; Stop 01/07/17 at 10:46; Status DC Quetiapine Fumarate (SEROquel) 100 mg QHS PO ; Start 01/07/17 at 21:00; Stop at 20:59 Quetiapine Fumarate (SEROquel) 100 mg TID PO Last administered on 12/30/16 08: 28; Start 12/30/16 at 09:00; Stop 12/30/16 at 11:39; Status DC Quetiapine Fumarate (SEROquel) 200 mg QHS PO ; Start 12/30/16 at 21:00; Stop 04/07 at 20:59; Status Cancel Quetiapine Fumarate (SEROquel) 200 mg QID PO Last administered on 12/30/16 20: 39; Start 12/30/16 at 13:00; Stop 12/31/16 at 08:55; Status DC Quetiapine Fumarate (SEROquel) 200 mg TID PO Last administered on 12/29/16 20: 51; Start 12/29/16 at 09:00; Stop 12/29/16 at 23:03; Status DC Quetiapine Fumarate (SEROquel) 200 mg TID PO ; Start 12/30/16 at 16:00; Stop 04/07 at 15:59; Status Cancel Trazodone HCl (Desyrel) 50 mg QHSP PRN PO INSOMNIA Last administered on 21:44; Start 12/29/16 at 08:30; Stop 01/01/17 at 10:18; Status DC Allergies Coded Allergies: Acetaminophen (Verified Adverse Reaction, Mild, NAUSEA, 12/29/16) Ibuprofen (Verified Adverse Reaction, Mild, NAUSEA, 12/29/16) Naproxen (Verified Adverse Reaction, Mild, NAUSEA, 12/29/16) REG TITUS MD Jan 07, 2017 15:42
[2017-01-07 18:22] VITALS: BP 139/88
[2017-01-07] MEDS: PALIPERIDONE 3 MG ER TAB (INVEGA) PO SCH (20:23)
[2017-01-07] MEDS: **NOTE PATIENT COMMENT** MISC XX SCH (20:24)
[2017-01-07] MEDS ORDERED: QUEtiapine FUMARATE 100 MG TAB PO SCH (21:00)
[2017-01-07] MEDS ORDERED: **NOTE PATIENT COMMENT** MISC XX SCH (21:00)
[2017-01-08] MEDS: NICOTINE POLACRILEX 2 MG GUM PO PRN ×3 (01:27→10:29)
[2017-01-08] MEDS: NYSTATIN 500,000 U/5 ML SUSP UDC SS SCH ×2 (05:57→11:16)
[2017-01-08 07:14] VITALS: BP 146/78
[2017-01-08] MEDS: PALIPERIDONE 6 MG ER TAB (INVEGA) PO SCH (08:16)
[2017-01-08] MEDS: LIDOCAINE 5% (LIDODERM) PATCH TD SCH (08:16)
[2017-01-08] MEDS: DIVALPROEX 250MG *ER* TAB PO SCH (08:16)
[2017-01-08] MEDS ORDERED: OLANZapine 5 MG TAB PO PRN (08:30)
[2017-01-08] MEDS ORDERED: PALIPERIDONE PALMITATE 234 MG/1.5 ML INJ (INVEGA SUSTENNA)(J2426) IM ONE (09:00)
[2017-01-08] MEDS ORDERED: PALI1TAB2 PO (10:35)
[2017-01-08] MEDS ORDERED: DEPA250T2 PO ×3 (10:35→10:53)
[2017-01-08] MEDS ORDERED: QUET1TAB8 PO (10:35)
[2017-01-08] MEDS ORDERED: PALI1TAB3 PO (10:35)
[2017-01-08] MEDS ORDERED: HYDRO50TAB PO (10:59)
[2017-01-08] MEDS ORDERED: INVE234I IM (10:59)
[2017-01-08] MEDS ORDERED: hydrOXYzine 50 MG TAB PO SCH (12:00)
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
--- NOTE | 2017-01-14 13:31 | MHHPEPDOC ---
[facility] History & Physical History and Physical WRONG EDIT. THIS LEAD RELAY TESTER INTENDED TO CREATE AN H AND PE FOR PATIENT'S NEW VISIT ON 01/14/17. THIS EDIT WAS CREATED IN ERROR, PLEASE DISREGARD. INITIAL TREATMENT PLAN: 1. Patient was admitted on a . 2. Complete history was obtained. 3. With patients permission, family will be contacted and database will be expanded. 4. Patients medication regimen will be reviewed and changed accordingly. 5. Patient will be provided with protected environment. 6. Patient will be treated with individual, group, and milieu therapies. 7. Patient will receive supportive psych-education. 8. Discharge planning will commence immediately. 9. Outpatient follow-up treatment will be strongly recommended. 10. The initial treatment plan will focus initially on: * Depression. * Risk for suicide. * Substance abuse. ESTIMATED LENGTH OF STAY: - DAYS. TIME SPENT COUNSELING AND COORDINATING INITIAL CARE: minutes. Medications Scheduled Divalproex Sodium (Divalproex Sodium ER) 250 Mg Tab, 750 MG PO BID, (Reported) Hydroxyzine HCl (Hydroxyzine HCl) 50 Mg Tab, 50 MG PO Q6H, (Reported) Paliperidone (Invega) 6 Mg Tab, 6 MG PO QAM, (Reported) Paliperidone (Invega) 3 Mg Tab, 3 MG PO QHS, (Reported) Paliperidone Palmitate (Invega Sustenna) 234 Mg/1.5 Ml Inj, 234 MG IM QMONTH, ( Reported) Quetiapine Fumerate (Seroquel) 100 Mg Tab, 100 MG PO QHS, (Reported) Allergies Coded Allergies: Acetaminophen (Verified Adverse Reaction, Mild, NAUSEA, 12/29/16) Ibuprofen (Verified Adverse Reaction, Mild, NAUSEA, 12/29/16) Naproxen (Verified Adverse Reaction, Mild, NAUSEA, 12/29/16) REG TITUS MD Jan 14, 2017 13:31
== END 2017-01-08 12:00 | disposition home or self-care (01) | DRG 885 ==
LOC: EDBD 06:23 → M ED 06:23 → M ED INP 08:26 → M PSY 10:20
PROVIDERS: ADMIT Psychiatry & Neurology Psychiatry; ATTEND Psychiatry & Neurology Psychiatry
DX: F31.9 Bipolar disorder, unspecified (principal); F10.10 Alcohol abuse, uncomplicated; F12.90 Cannabis use, unspecified, uncomplicated; Z79.899 Other long term (current) drug therapy; Z88.8 Allergy status to other drugs, medicaments and biological substances; F17.200 Nicotine dependence, unspecified, uncomplicated; D72.829 Elevated white blood cell count, unspecified

== ENCOUNTER 2017-01-12 22:47 | Inpatient (IN) | payer OTHER ==
[~2017-01-12] VITALS: Ht 170.2 cm; Wt 63.6 kg
[~2017-01-12 22:47] MED LIST changes: +DEPA250T2 PO; +HYDRO50TAB PO; +INVE234I IM; +PALI1TAB2 PO; +PALI1TAB3 PO; +QUET1TAB8 PO
[2017-01-13 01:09] LABS: MEAN CORPUSCULAR HEMOGLOBIN 32.4 pg (27.0-33.0); MEAN CORPUSCULAR HGB CONC 34.8 g/dl (32.0-36.5); MEAN CORPUSCULAR VOLUME 93.4 fl (80.0-96.0); WHITE BLOOD COUNT 10.9 K/mm3 (4.0-10.0)
[2017-01-13 01:25] LABS: METHADONE URINE NEGATIVE (NEGATIVE)
[2017-01-13 01:41] LABS: ALBUMIN 3.6 GM/DL (3.2-5.2); ALBUMIN/GLOBULIN RATIO 1.13 (1.00-1.93); ALKALINE PHOSPHATASE 71 U/L (45-117); ALT/SGPT 18 U/L (12-78); ANION GAP 7 MEQ/L (8-16); AST/SGOT 14 U/L (15-37); BILIRUBIN,DIRECT < 0.1 MG/DL (0.0-0.2); BILIRUBIN,TOTAL 0.2 MG/DL (0.2-1.0); BLOOD UREA NITROGEN 8 MG/DL (7-18); CARBON DIOXIDE LEVEL 27 MEQ/L (21-32); CHLORIDE LEVEL 108 MEQ/L (98-107); CREATININE FOR GFR 0.67 MG/DL (0.70-1.30); GLOMERULAR FILTRATION RATE > 60.0 (>60); GLUCOSE, FASTING 74 MG/DL (70-105); POTASSIUM SERUM 3.7 MEQ/L (3.5-5.1); SODIUM LEVEL 142 MEQ/L (136-145); TOTAL PROTEIN 6.8 GM/DL (6.4-8.2)
[2017-01-13] MEDS ORDERED: DIVALPROEX 250MG *ER* TAB PO ONE (08:30)
[2017-01-13] MEDS ORDERED: hydrOXYzine 50 MG TAB PO ONE (08:30)
[2017-01-13] MEDS: PALIPERIDONE 6 MG ER TAB (INVEGA) PO SCH ×2 (09:00→09:55)
[2017-01-13] MEDS ORDERED: HYDR50TA70 PO (11:47)
[2017-01-13] MEDS ORDERED: INVE3TAB2 PO (11:47)
[2017-01-13] MEDS ORDERED: SERO1TAB PO (11:47)
[2017-01-13] MEDS ORDERED: INVE6TAB3 PO (11:47)
[2017-01-13] MEDS ORDERED: DIVA250T7 PO (11:47)
[2017-01-13] MEDS ORDERED: INVE234I IM (11:47)
[2017-01-13 15:23] VITALS: BP 126/65
[2017-01-13] MEDS ORDERED: MOM 30ML SUSPENSION UDC PO PRN (16:30)
[2017-01-13] MEDS ORDERED: PALIPERIDONE PALMITATE 156 MG/1ML INJ(INVEGA SUSTENNA)(J2426) IM ONE (16:30)
[2017-01-13] MEDS: NICOTINE POLACRILEX 2 MG GUM PO PRN ×2 (16:36→21:47)
[2017-01-13] MEDS: hydrOXYzine 50 MG TAB PO SCH ×2 (17:00→23:07)
[2017-01-13] MEDS: PALIPERIDONE 3 MG ER TAB (INVEGA) PO SCH (21:47)
[2017-01-13] MEDS: QUEtiapine FUMARATE 100 MG TAB PO SCH (21:47)
[2017-01-13] MEDS: DIVALPROEX 250MG *ER* TAB PO SCH (21:48)
[2017-01-14] MEDS: NICOTINE POLACRILEX 2 MG GUM PO PRN ×5 (04:19→21:45)
[2017-01-14] MEDS: hydrOXYzine 50 MG TAB PO SCH ×4 (06:00→23:56)
[2017-01-14 06:49] VITALS: BP 118/59
[2017-01-14] MEDS: PALIPERIDONE 6 MG ER TAB (INVEGA) PO SCH (08:55)
[2017-01-14] MEDS: DIVALPROEX 250MG *ER* TAB PO SCH ×2 (08:55→20:16)
--- NOTE | 2017-01-14 09:44 | HPEPDOC ---
Medical History and Physical Date of Admission Jan 13, 2017 at 14:24 History and Physical PCP: [facility] ATTENDING: Dr. Douglas Acevedo HPI: 26yoM admitted to [facility] for bipolar disorder, being medically examined today. The patient states he is no longer having left ankle pain, previous x- ray of the left ankle related to injury was unremarkable. The patient was treated for ankle sprain. The patient has been ambulating and is bearing weight. Denies any fevers, chills, weakness, fatigue, EUCEDA, CP, SOB, cough, palpitations, abdominal pain, N/V/D or changes in bowel or bladder habits. PMHx: ADHD Anxiety Depression Bipolar disorder History of SI Substance use Tobacco use History of left ankle injury in the past related to skateboarding. Recurrent left ankle injury 12/22/16. PSHX: Adenoidectomy Tympanostomy tubes SOCHX: Resides in: [facility], living with his mother. Marital Status: Single Kids: None Employment: [employer] Tobacco use: 2 packs per day ETOH: Patient states none since discharge last week. Previously Twice per week 3 drinks Illicit Drugs: Patient states none since discharge last week. Previously Marijuana daily. Cocaine in the past. IV Drug Use: Denies Tattoos done unprofessionally: 1 FAMHX: Mother: Alive, well. Father: Unknown Siblings: 1 brother Alive, depression Children: None Unexpected deaths due to medical reasons: None. ROS: As noted in HPI, otherwise 11pt ROS of systems reviewed and unremarkable. PE: GEN: 26 yo M, appears stated age. Well-nourished, well developed. No acute distress. Alert and oriented x 3. Avoids eye contact. Rapid pressured speech. Tangential. HEENT: Normocephalic, atraumatic. Pupils are equal, round, and reactive to light. Extraocular movements are intact. No nystagmus appreciated. Sclera are nonicteric. Conjunctiva without injection. Nose midline. Nasal turbinates without bogginess. EACs both patent BL. TMs both visualized and germain with good cone of light, no bulging or erythema. No facial asymmetry. Moist mucous membranes. Dentition fair. Pharynx pink and moist, no cobblestoning. Neck supple , trachea midline. No lymphadenopathy or thyromegaly appreciated. CHEST: Regular rate and rhythm, +S1, +S2 LUNGS: Clear to auscultation bilaterally. No wheezes, rales, or rhonchi. Breathing appears symmetric and easy. Patient is speaking in full sentences. No accessory muscle use. ABD: Round, soft, non-tender, non-distended. +Bowel sounds throughout. No rebound or guarding. No costovertebral angle tenderness. EXT: Pulses 2+ bilaterally dorsalis pedis and radial. No lower extremity edema appreciated. Mild left inner ankle discomfort with palpation. No erythema. No edema. No ecchymosis noted. SKIN: [place], dry, warm. Capillary refill <2sec. No rashes. NEURO: Alert and oriented x 3. Cranial nerves III-XII are intact. No focal deficits appreciated. EKG: pending. A&P: 26yoM admitted to [facility] for [facility] disorder 1. Psych. Plan per Psychiatry. Obtain baseline EKG to assure the safety of psychiatric medications as they can prolong the QT interval. 2. Follow up with PCP on discharge. 3. Mild Leukocytosis. Patient is afebrile. Asymptomatic. Recheck CBC in a.m. 4. History of tattoo done unprofessionally. HIV and hepatitis screening negative 12/30/16. 5. Staff member Sree present throughout exam. Vital Signs Vital Signs Date Time Temp Pulse Resp B/P (MAP) Pulse Ox O2 Delivery O2 Flow Rate FiO2 01/14/17 06:49 97.6 114 20 118/59 (78) 01/13/17 15:05 98 Room Air Laboratory Data Labs 24H Item Value Date Time White Blood Count 10.9 K/mm3 H 01/13/1755 Red Blood Count 4.52 M/mm3 01/13/17 005 Hemoglobin 14.7 g/dl 01/13/17 005 Hematocrit 42.2 % 01/13/1755 Mean Corpuscular Volume 93.4 fl 01/13/1755 Mean Corpuscular Hemoglobin 32.4 pg 01/13/1755 Mean Corpuscular Hemoglobin Concent 34.8 g/dl 01/13/1755 Red Cell Distribution Width 12.0 % 01/13/1755 Platelet Count 207 k/mm3 01/13/1755 Sodium Level 142 MEQ/L 01/13/1755 Potassium Level 3.7 MEQ/L 7/25/17 0056 Chloride Level 108 MEQ/L H 01/13/17 0056 Carbon Dioxide Level 27 MEQ/L 01/13/17 0056 Anion Gap 7 MEQ/L L 01/13/17 005 Blood Urea Nitrogen 8 MG/DL 01/13/17 0056 Creatinine 0.67 MG/DL L 01/13/17 0056 Glomerular Filtration Rate > 60.0 01/13/17 0056 Calcium Level 9.0 MG/DL 01/13/17 0056 Fasting Glucose 74 MG/DL 01/13/17 0056 Total Bilirubin 0.2 MG/DL 01/13/17 005 Direct Bilirubin < 0.1 MG/DL 01/13/17 0056 Aspartate Amino Transf (AST/SGOT) 14 U/L L 01/13/17 0056 Alanine Aminotransferase (ALT/SGPT) 18 U/L 01/13/17 0056 Alkaline Phosphatase 71 U/L 01/13/17 0056 Total Protein 6.8 GM/DL 01/13/17 0056 Albumin 3.6 GM/DL 01/13/17 0056 Albumin/Globulin Ratio 1.13 01/13/17 0056 Thyroid Stimulating Hormone (TSH) 3.000 uIU/ML 01/13/17 0056 Salicylates Level < 1.7 MG/DL L 01/13/17 0056 Urine Opiates Screen NEGATIVE 01/13/17 005 Urine Methadone Screen NEGATIVE 01/13/17 0056 Acetaminophen Level < 2.0 UG/ML L 01/13/17 005 Urine Barbiturates Screen NEGATIVE 01/13/17 0056 Valproic Acid (Depakene) Level 78.7 UG/ML 01/13/17 005 Urine Phencyclidine Screen NEGATIVE 01/13/17 0056 Urine Amphetamines Screen NEGATIVE 01/13/17 0056 Urine Benzodiazepines Screen NEGATIVE 01/13/17 0056 Urine Cocaine Metabolite Screen NEGATIVE 01/13/17 0056 Urine Cannabinoids Screen NEGATIVE 01/13/17 0056 Ethyl Alcohol Level 0.003 % 01/13/17 0056 Hepatitis A IgM Antibody NEGATIVE 12/30/16 0855 Hepatitis B Surface Antigen NEGATIVE 12/30/16 0855 Hepatitis B Core IgM Antibody NEGATIVE 12/30/16 0855 Hepatitis C Antibody Index < 0.0 INDEX 12/30/16 0855 HIV Antigen/Antibody Combo Qual NEGATIVE 12/30/16 0855 Home Medications Scheduled Divalproex Sodium (Divalproex Sodium ER) 250 Mg Tab, 750 MG PO BID Hydroxyzine HCl (Hydroxyzine HCl) 50 Mg Tab, 50 MG PO Q6H Paliperidone (Invega) 6 Mg Tab, 6 MG PO QAM Paliperidone (Invega) 3 Mg Tab, 3 MG PO QHS Paliperidone Palmitate (Invega Sustenna) 234 Mg/1.5 Ml Inj, 234 MG IM QMONTH Quetiapine Fumerate (Seroquel) 100 Mg Tab, 100 MG PO QHS Allergies Coded Allergies: Acetaminophen (Verified Adverse Reaction, Mild, NAUSEA, 12/29/16) Ibuprofen (Verified Adverse Reaction, Mild, NAUSEA, 12/29/16) Naproxen (Verified Adverse Reaction, Mild, NAUSEA, 12/29/16) Peggy Ware Jan 14, 2017 09:44
--- NOTE | 2017-01-14 17:45 | ECGEPIP ---
Stationary ECG Study [facility] Test Date: 2017-01-14 Pat Name: MONSTER SOUZA Department: Room: [place] [address] Gender: M Shift Stacker: AGUS : [id number] Requested By: Peggy Ware Order Number: [id number] Reading MD: Douglas Acevedo Measurements Intervals [place] Rate: 68 P: 26 TX: 122 QRS: 74 QRSD: 93 T: 60 QT: 363 QTc: 388 Interpretive Statements SINUS RHYTHM NONSPECIFIC T-WAVE ABNORMALITY TX interval normalized since tracing done 12-30-16 Electronically Signed On 01-14-2017 17:45:17 EDT by Douglas Acevedo
[2017-01-14 18:28] VITALS: BP 128/72
[2017-01-14] MEDS: QUEtiapine FUMARATE 100 MG TAB PO SCH (20:16)
[2017-01-14] MEDS: PALIPERIDONE 3 MG ER TAB (INVEGA) PO SCH (20:16)
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
[2017-01-15] MEDS: NICOTINE POLACRILEX 2 MG GUM PO PRN ×4 (04:06→18:59)
[2017-01-15] MEDS: hydrOXYzine 50 MG TAB PO SCH (05:56)
[2017-01-15 06:45] VITALS: BP 142/67
[2017-01-15 06:50] LABS: MEAN CORPUSCULAR HEMOGLOBIN 32.3 pg (27.0-33.0); MEAN CORPUSCULAR HGB CONC 34.4 g/dl (32.0-36.5); MEAN CORPUSCULAR VOLUME 93.8 fl (80.0-96.0); RED CELL DISTRIBUTION WIDTH 12.2 % (11.5-14.5); WHITE BLOOD COUNT 11.6 K/mm3 (4.0-10.0)
[2017-01-15] MEDS: PALIPERIDONE 6 MG ER TAB (INVEGA) PO SCH (08:32)
[2017-01-15] MEDS: DIVALPROEX 250MG *ER* TAB PO SCH ×2 (08:33→20:11)
[2017-01-15] MEDS ORDERED: ACETAMINOPHEN TAB 650MG DOSE (2X325MG) PO ONE (14:45)
--- NOTE | 2017-01-15 14:57 | MHIPNPDOC ---
[facility] Progress Note Progress Note DATE OF SERVICE: 01/15/17 INTERVAL HISTORY: Medication Side effects: Patient reports feeling very sleepy during the mornings but it's hard for him to fall asleep at night. Behavior: He has been compliant with treatment, with group attendance and with medications. Hasn't had angry outbursts and has not been sexually inappropriate Group Attendance: Has attended some groups Psychiatric Symptom change: He is not aggressive, not defiant and has no grandiose delusions. His insight, judgment and impulse control are still poor. VITAL SIGNS: See below. NEW TEST RESULTS: See below CURRENT MEDICATIONS: See below. MENTAL STATUS EXAMINATION: General: Alert, oriented to place and person, with good eye contact and will report Speech: Circumstantial, rapid and slurred. Thought processes: Still disorganized Thought content: Perseveres about how his mental illness is interfering with his life Abstract reasoning, and computation: Unable to assess at this time. Patient is very sleepy Description of associations: Loose Description of abnormal or psychotic thoughts: Denies auditory and visual hallucinations, denies thought delusions, denies suicidal or homicidal thoughts Judgment: Poor Insight: POOR Orientation: Oriented to place and person Recent and remote memory: Fair Attention span and concentration: Poor Fund of knowledge: Fair Mood: Anxious Affect: Anxious DIAGNOSES: 1. Bipolar disorder, manic episode. ASSESSMENT:Patient has no insight, has very impulse control and poor judgement. Needs longer treatment to stabilize MANAGEMENT PLAN: Continue with the same treatment plan. Seroquel was increased to 200 mgs PO QHS, Atarx was decreased to q8 hours instead of [id number]. Time spent: 30 minutes Vital Signs Vital Signs Date Time Temp Pulse Resp B/P (MAP) Pulse Ox O2 Delivery O2 Flow Rate FiO2 01/15/17 08:54 Room Air 01/15/17 06:45 97.6 102 20 142/67 (92) 01/13/17 15:05 98 Laboratory Data CBC/BMP Laboratory Tests 01/15/17 06:29 Red Blood Count 4.50, Mean Corpuscular Volume 93.8, Mean Corpuscular Hemoglobin 32.3, Mean Corpuscular Hemoglobin Concent 34.4, Red Cell Distribution Width 12.2 Current Medications Current Medications Al Hydrox/Mg Hydrox/Simethicone (Mylanta) 30 ml Q4HP PRN PO HEARTBURN/ INDIGESTION; Start 01/13/17 at 16:30; Stop 02/12/17 at 16:29 Divalproex Sodium (Depakote Er) 750 mg BID PO Last administered on 01/15/17 08 :33; Start 01/13/17 at 21:00; Stop 02/12/17 at 20:59 Home Med (Med Rec Complete!) ASDIRECTED XX ; Start 01/13/17 at 12:00; Stop at 12:00; Status DC Hydroxyzine HCl (Atarax) 50 mg Q6H PO Last administered on 01/15/17 05:56; Start 01/13/17 at 18:00; Stop 01/15/17 at 12:04; Status DC Hydroxyzine HCl (Atarax) 50 mg Q8H PO ; Start 01/15/17 at 22:00; Stop 02/12/17 at 21:59 Magnesium Hydroxide (Milk Of Magnesia) 30 ml DAILYPRN PRN PO CONSTIPATION; Start 01/13/17 at 16:30; Stop 02/12/17 at 16:29 Nicotine (Nicorette) 2 mg Q4HP PRN PO NICOTINE WITHDRAWAL Last administered on 01/15/17 13:00; Start 01/13/17 at 16:30; Stop 02/12/17 at 16:29 Paliperidone (Invega) 3 mg QHS PO Last administered on 01/14/17 20:16; Start 01/13/17 at 21:00; Stop 02/12/17 at 20:59 Paliperidone (Invega) 6 mg DAILY PO Last administered on 01/13/17 09:55; Start 01/13/17 at 09:00; Stop 01/13/17 at 16:32; Status DC Paliperidone (Invega) 6 mg DAILY PO Last administered on 01/15/17 08:32; Start 01/14/17 at 09:00; Stop 02/13/17 at 08:59 Quetiapine Fumarate (SEROquel) 100 mg QHS PO Last administered on 01/14/17 20: 16; Start 01/13/17 at 21:00; Stop 01/15/17 at 12:06; Status DC Quetiapine Fumarate (SEROquel) 200 mg QHS PO ; Start 01/15/17 at 21:00; Stop at 20:59 Allergies Coded Allergies: Acetaminophen (Verified Adverse Reaction, Mild, NAUSEA, 12/29/16) Ibuprofen (Verified Adverse Reaction, Mild, NAUSEA, 12/29/16) Naproxen (Verified Adverse Reaction, Mild, NAUSEA, 12/29/16) REG TITUS MD Jan 15, 2017 14:57
[2017-01-15 18:00] VITALS: BP 125/77
[2017-01-15] MEDS: PALIPERIDONE 3 MG ER TAB (INVEGA) PO SCH (20:10)
[2017-01-15] MEDS ORDERED: QUEtiapine FUMARATE 100 MG TAB PO SCH (21:00)
[2017-01-15] MEDS ORDERED: hydrOXYzine 50 MG TAB PO SCH (22:00)
[2017-01-16] MEDS: hydrOXYzine 50 MG TAB PO PRN ×2 (01:38→16:58)
[2017-01-16] MEDS: NICOTINE POLACRILEX 2 MG GUM PO PRN ×4 (01:38→20:10)
[2017-01-16 06:27] VITALS: BP 129/72
[2017-01-16] MEDS: DIVALPROEX 250MG *ER* TAB PO SCH ×2 (08:08→20:09)
[2017-01-16] MEDS: PALIPERIDONE 6 MG ER TAB (INVEGA) PO SCH ×2 (08:08→20:09)
[2017-01-16] MEDS: IBUPROFEN 400 MG TAB PO PRN ×3 (08:09→22:34)
--- NOTE | 2017-01-16 10:05 | IPNPDOC ---
Date Seen The patient was seen on 01/16/17. Progress Note HPI: 26yoM admitted to [facility] for bipolar disorder, requested to evaluate patient today regarding abdominal pain. The patient reports history of colitis and diverticulitis as well as inguinal hernia. He states he has been having some difficulty with urinating, urgency however no hematuria, frequency, or dysuria. He also reports some difficulty having a bowel movement, he denies diarrhea. He is reporting left lower quadrant abdominal pain. Radiation of pain into the left groin area. He states he has been eating and drinking. Denies any fevers, chills, weakness, fatigue, EUCEDA, CP, SOB, cough, palpitations. PMHx: ADHD Anxiety Depression Bipolar disorder History of SI Substance use Tobacco use History of left ankle injury in the past related to skateboarding. Recurrent left ankle injury 12/22/16. PSHX: Adenoidectomy Tympanostomy tubes PE: GEN: 26 yo M, appears stated age. Well-nourished, well developed. No acute distress. Alert and oriented x 3. HEENT: Normocephalic, atraumatic. Pupils are equal, round, and reactive to light. Extraocular movements are intact. No nystagmus appreciated. Sclera are nonicteric. Conjunctiva without injection. Nose midline. No facial asymmetry. Moist mucous membranes. Dentition fair. Pharynx pink and moist. Neck supple, trachea midline. No lymphadenopathy or thyromegaly appreciated. CHEST: Regular rate and rhythm, +S1, +S2 LUNGS: Clear to auscultation bilaterally. No wheezes, rales, or rhonchi. Breathing appears symmetric and easy. Patient is speaking in full sentences. No accessory muscle use. ABD: Flat, soft, mild tenderness with palpation in the left lower quadrant and left groin area, non-distended. +Bowel sounds throughout. No rebound or guarding. No costovertebral angle tenderness. There is no erythema or masses noted. EXT: Pulses 2+ bilaterally dorsalis pedis and radial. No lower extremity edema appreciated. Mild left inner ankle discomfort with palpation. No erythema. No edema. No ecchymosis noted. SKIN: [place], dry, warm. Capillary refill <2sec. No rashes. NEURO: Alert and oriented x 3. Cranial nerves III-XII are intact. No focal deficits appreciated. EK01/14/17 SINUS RHYTHM NONSPECIFIC T-WAVE ABNORMALITY WV interval normalized since tracing done 12-30-16 . A&P: 26yoM admitted to [facility] for bipolar disorder 1. Psych. Plan per Psychiatry. EKG on file. 2. Follow up with PCP on discharge. 3. Mild Leukocytosis. Patient is afebrile. Asymptomatic. Recheck CBC. 4. History of tattoo done unprofessionally. HIV and hepatitis screening negative 12/30/16. 5. Abdominal pain. Update CBC/CMP. Request CT scan abdomen and pelvis. Request UA/urine culture. Continue Ibuprofen 400 mg every 6 hours as needed. Monitor. 6. Staff member Jose PADGETT present throughout exam. VS, I&O, 24H, Fishbone Vital Signs/I&O Vital Signs Date Time Temp Pulse Resp B/P (MAP) Pulse Ox O2 Delivery O2 Flow Rate FiO2 01/16/17 06:27 97.4 92 18 129/72 (91) 01/15/17 08:54 Room Air 01/13/17 15:05 98 Laboratory Data 24H LABS Item Value Date Time Sodium Level 142 MEQ/L 01/13/17 0056 Potassium Level 3.7 MEQ/L 01/13/17 0056 Chloride Level 108 MEQ/L H 01/13/17 0056 Carbon Dioxide Level 27 MEQ/L 01/13/17 0056 Anion Gap 7 MEQ/L L 01/13/17 0056 Blood Urea Nitrogen 8 MG/DL 01/13/17 0056 Creatinine 0.67 MG/DL L 01/13/17 0056 Glomerular Filtration Rate > 60.0 01/13/17 0056 Fasting Glucose 74 MG/DL 01/13/17 0056 Calcium Level 9.0 MG/DL 01/13/17 0056 Direct Bilirubin < 0.1 MG/DL 01/13/17 0056 Total Bilirubin 0.2 MG/DL 01/13/17 0056 Aspartate Amino Transf (AST/SGOT) 14 U/L L 01/13/17 0056 Alanine Aminotransferase (ALT/SGPT) 18 U/L 01/13/17 0056 Alkaline Phosphatase 71 U/L 01/13/17 0056 Total Protein 6.8 GM/DL 01/13/17 0056 Albumin 3.6 GM/DL 01/13/17 0056 Albumin/Globulin Ratio 1.13 01/13/17 0056 Thyroid Stimulating Hormone (TSH) 3.000 uIU/ML 01/13/17 0056 White Blood Count 11.6 K/mm3 H 01/15/17 06 Red Blood Count 4.50 M/mm3 01/15/17 06 Hemoglobin 14.5 g/dl 01/15/17 06 Hematocrit 42.1 % 01/15/17628 Mean Corpuscular Volume 93.8 fl 01/15/17628 Mean Corpuscular Hemoglobin 32.3 pg 01/15/17628 Mean Corpuscular Hemoglobin Concent 34.4 g/dl 01/15/17628 Red Cell Distribution Width 12.2 % 01/15/17628 Platelet Count 223 k/mm3 01/15/17628 Peggy Ware Jan 16, 2017 10:05
[2017-01-16] MEDS ORDERED: ISOVUE-370 76% 100ML VIAL (Q9967) As Ordered ONE (10:10)
[2017-01-16] MEDS ORDERED: GASTROGRAFIN SOLUTION 30ML PO ONE (10:30)
[2017-01-16] MEDS ORDERED: GASTROGRAFIN SOLUTION 30ML (Q9963) PO ONE (11:00)
[2017-01-16 14:04] LABS: ALBUMIN 3.8 GM/DL (3.2-5.2); ALBUMIN/GLOBULIN RATIO 1.15 (1.00-1.93); ALKALINE PHOSPHATASE 71 U/L (45-117); ALT/SGPT 22 U/L (12-78); ANION GAP 10 MEQ/L (8-16); AST/SGOT 13 U/L (15-37); BILIRUBIN,TOTAL 0.2 MG/DL (0.2-1.0); BLOOD UREA NITROGEN 8 MG/DL (7-18); CALCIUM LEVEL 9.8 MG/DL (8.5-10.1); CARBON DIOXIDE LEVEL 28 MEQ/L (21-32); CHLORIDE LEVEL 101 MEQ/L (98-107); GLOMERULAR FILTRATION RATE > 60.0 (>60); GLUCOSE, FASTING 98 MG/DL (70-105); POTASSIUM SERUM 4.2 MEQ/L (3.5-5.1); SODIUM LEVEL 139 MEQ/L (136-145); TOTAL PROTEIN 7.1 GM/DL (6.4-8.2)
[2017-01-16 14:23] LABS: BASO % 0.3 % (0.0-1.0); EOS # 0.2 K/mm3 (0.0-0.50); EOS % 1.6 % (0.0-3.0); LARGE UNSTAINED CELL # 0.2 K/mm3 (0.0-0.4); LYMPH # 2.6 K/mm3 (1.5-6.5); LYMPH % 26.4 % (24.0-44.0); MEAN CORPUSCULAR HEMOGLOBIN 32.8 pg (27.0-33.0); MEAN CORPUSCULAR VOLUME 93.8 fl (80.0-96.0); MONO # 0.7 K/mm3 (0.0-0.8); MONO % 7.5 % (0.0-5.0); NEUTROPHILS # 5.6 K/mm3 (1.8-7.7); NEUTROPHILS % 62.1 % (36.0-66.0); PLATELET COUNT, AUTOMATED 219 k/mm3 (150-450); RED CELL DISTRIBUTION WIDTH 12.5 % (11.5-14.5); WHITE BLOOD COUNT 9.1 K/mm3 (4.0-10.0)
--- NOTE | 2017-01-16 14:26 | REP ---
CT ABDOMEN PELVIS WITH CONTRAST: 01/16/2017. Clinical history: Left lower quadrant abdominal pain, left groin pain. Prior colitis, diverticulitis. Technique. Oral Gastrografin 10 mL in 290 ml flavored water for two doses per our bowel contrast protocol. Bolus of 100 mL Isovue 370 scanning through the abdomen and pelvis with coronal and sagittal reconstructions. Findings: CT abdomen: The lung bases are clear. Heart not enlarged. There is no pericardial thickening or effusion. I see no hiatal hernia. Liver, spleen, gallbladder, pancreas, adrenal glands, kidneys and their collecting systems were unremarkable. The aorta is intact. There is no periaortic or other retroperitoneal pathologic sized lymphadenopathy. Small bowel loops are contrast or fluid-filled but not dilated. No abnormal wall thickening, mesenteric inflammatory change or pathologic adenopathy in the mesentery and retroperitoneum. Moderate stool in the right transverse and left colon representing some mild degree of constipation. I do not see definite diverticulosis or diverticulitis in the abdomen proper. Bones were intact. CT pelvis: There is infiltration of the fat around the distal left colon and cecum with terminal ileum. The appendix is seen and normal. There is no ascites in the deep pelvis. Bladder shows no wall thickening mass or stone. No ureteral dilatation or stone in the distal ureters edema and thickening of the wall of the rectum and distal sigmoid suggesting proctosigmoiditis. No ventral or inguinal hernia nor pathologic inguinal adenopathy. The bony pelvis is without any focal abnormality except for a small bone island in the left iliac bone near the acetabular roof. Impression: 1. Proctosigmoiditis with some infiltration of fat about the distal left colon and proximal sigmoid as well as near the cecum and terminal ileum. No definite ileitis by CT. Appendix is normal. 2. No abdominal/pelvic ascites, adenopathy, mass or free air. 3. Moderate retained stool suggesting some degree of constipation. Solid organs and upper abdomen unremarkable. Signed by Bj Berger MD 01/16/2017 04:34 P
[2017-01-16] MEDS: metroNIDAZOLE (FLAGYL) 500 MG TAB PO SCH ×2 (15:25→20:07)
[2017-01-16] MEDS: MAALOX 30 ML SUSP *UDC PO PRN (15:58)
[2017-01-16] MEDS: CIPROFLOXACIN 500 MG TAB PO SCH (17:58)
[2017-01-16 18:00] VITALS: BP 127/70
[2017-01-16] MEDS: QUEtiapine FUMARATE 100 MG TAB PO SCH (21:52)
[2017-01-17] MEDS: metroNIDAZOLE (FLAGYL) 500 MG TAB PO SCH ×3 (06:00→22:00)
[2017-01-17] MEDS: CIPROFLOXACIN 500 MG TAB PO SCH ×2 (06:18→17:48)
[2017-01-17 06:41] VITALS: BP 134/76
[2017-01-17] MEDS: PALIPERIDONE 6 MG ER TAB (INVEGA) PO SCH ×2 (08:16→21:11)
[2017-01-17] MEDS: DIVALPROEX 250MG *ER* TAB PO SCH ×2 (08:16→21:12)
[2017-01-17] MEDS: NICOTINE POLACRILEX 2 MG GUM PO PRN ×3 (09:47→21:12)
[2017-01-17] MEDS: hydrOXYzine 50 MG TAB PO PRN (15:16)
[2017-01-17 18:19] VITALS: BP 134/74
[2017-01-17] MEDS: QUEtiapine FUMARATE 100 MG TAB PO SCH (22:10)
[2017-01-18] MEDS: hydrOXYzine 50 MG TAB PO PRN (04:43)
[2017-01-18] MEDS: metroNIDAZOLE (FLAGYL) 500 MG TAB PO SCH ×4 (06:00→21:14)
[2017-01-18] MEDS: CIPROFLOXACIN 500 MG TAB PO SCH ×2 (06:09→17:48)
[2017-01-18] MEDS: NICOTINE POLACRILEX 2 MG GUM PO PRN ×2 (06:09→17:49)
[2017-01-18 06:11] VITALS: BP 129/60
[2017-01-18] MEDS: PALIPERIDONE 6 MG ER TAB (INVEGA) PO SCH ×2 (07:57→21:14)
[2017-01-18] MEDS: DIVALPROEX 250MG *ER* TAB PO SCH ×2 (07:57→21:15)
[2017-01-18] MEDS: IBUPROFEN 400 MG TAB PO PRN (09:55)
--- NOTE | 2017-01-18 17:56 | MHIPN ---
DATE: 01/16/2017 MEDICATION SIDE EFFECTS: The patient reports that it was very hard for him to fall asleep last night, and he said that he wanted to leave today because he felt medications were not working appropriately. BEHAVIOR: The patient is still very impulsive. He has no insight into the severity of his illness. He continues to make phone calls and receive phone calls from his family, and is making impulsive decisions that could cause him pain in the future. GROUP ATTENDANCE: He has been attending groups and has been behaving appropriately. PSYCHIATRIC SYMPTOMS: Unchanged. He still has pressured speech. He is still very impulsive. His judgment and his insight are poor, but he is redirectable and has not shown any inappropriate behavior on the unit. VITAL SIGNS: Stable. NEW TEST RESULTS: There are no new test results. MENTAL STATUS EXAMINATION: GENERAL: The patient is alert, oriented times three. Good hygiene. Good rapport. Properly groomed. Speech is slurred and pressured. Thought process is disorganized. Thought content: Perseverates about being discharged, wanting to go home. Abstract reasoning and computation: The patient finds it very hard to focus on computation because his attention and concentration are not good at this time. His abstract thinking is a little bit better than his computation. Description of associations: Loose. Description of abnormal or psychotic thoughts: The patient denies auditory or visual hallucinations, denies suicidal or homicidal ideation, and denies thought delusions. His insight and judgment are poor. He is oriented times three. Recent and remote memory fair. Attention and concentration are poor. Fund of knowledge is fair. Mood and affect are anxious. DIAGNOSES: Bipolar disorder, manic episode. ASSESSMENT: The patient is still very impulsive. His judgment and insight are poor. He is still making impulsive decisions like wanting to leave today, he still expects his mother to give up her boyfriend in order for him to come back and live with her. He is still not thinking about her, he is centered on himself. This shows once again that his judgment and his insight about the whole family situation and the impact that he still has with the family dynamics is not there. MANAGEMENT PLAN: The patient has been encouraged to attend groups. Today his medications were adjusted. He will be receiving paliperidone 6 mg by mouth at night and he will be receiving paliperidone in the morning. Instead of receiving Seroquel 200 mg by mouth at night, he will be receiving Seroquel 300 mg by mouth at night. The patient went today for several tests because he was complaining of pain in his groin and he went for an abdominal CT and pelvic CT with contrast. The results show that there is of the fat around the distal left colon and cecum with terminal ileum and the impression was that of proctosigmoiditis or some infiltration of fat about the distal left colon and proximal sigmoid, as well as near the cecum and terminal ileum. No definite ileitis by CT. Appendix is normal. No abdominal or pelvic ascites, adenopathy, mass or free air. Moderate retained stool suggesting some degree of constipation. Upper abdomen unremarkable. For those reasons, the patient was started on antibiotic today. The patient will be monitored closely. We will followup.
[2017-01-18 18:27] VITALS: BP 122/74
[2017-01-18] MEDS: QUEtiapine FUMARATE 100 MG TAB PO SCH (21:36)
[2017-01-19] MEDS: IBUPROFEN 400 MG TAB PO PRN ×2 (04:16→12:52)
[2017-01-19] MEDS: NICOTINE POLACRILEX 2 MG GUM PO PRN ×3 (04:16→19:33)
[2017-01-19] MEDS: metroNIDAZOLE (FLAGYL) 500 MG TAB PO SCH ×3 (06:29→21:11)
[2017-01-19] MEDS: CIPROFLOXACIN 500 MG TAB PO SCH ×2 (06:29→17:32)
[2017-01-19 06:39] VITALS: BP 132/71
[2017-01-19] MEDS: PALIPERIDONE 6 MG ER TAB (INVEGA) PO SCH ×2 (08:40→21:09)
[2017-01-19] MEDS: DIVALPROEX 250MG *ER* TAB PO SCH ×2 (08:40→21:09)
[2017-01-19] MEDS: hydrOXYzine 50 MG TAB PO PRN (10:23)
--- NOTE | 2017-01-19 11:47 | MHIPN ---
DATE OF SERVICE: __01/17/17 26-year-old male with history of bipolar disorder, current episode manic. SUBJECTIVE: Patient reports feeling better. He seems to believe that his thoughts are more clear. He says he has spoken with his mother on the phone and she has told him that he sounds better, that his speech is less pressured and he says that his thoughts are not racing as much as they were. He denies medication side effect. Denies suicidal or homicidal ideations. Denies thought delusions and denies auditory and visual hallucinations. OBJECTIVE: Patient is alert, oriented to person and place but not to date and time. Cooperative, more calm with less psychomotor agitation. His speech is still slurred and rapid but less than before. His thought process is still irrational. His thought content is anxious about going back home and going back to work. He denies suicidal and homicidal ideation. He denies thought delusions and denies hallucinations. His memory is intact. His attention and concentration is improving. His fund of knowledge was not assessed because patient still has problems trying to focus on specific data. His insight and judgment are still poor. His impulse control has improved a little bit. His mood and affect are less expansive, less labile. ASSESSMENT: Patient has improved. He is less sedated but he is still manic. He still needs more days at the inpatient mental health unit to stabilize. At the present time, he is on 12 mg of paliperidone and he has received two injected doses. His luz is severe and he needs to be under observation. Will followup. PINKY
[2017-01-19 18:00] VITALS: BP 101/56
[2017-01-19] MEDS: QUEtiapine FUMARATE 100 MG TAB PO SCH (21:39)
[2017-01-20] MEDS: metroNIDAZOLE (FLAGYL) 500 MG TAB PO SCH ×3 (05:42→21:01)
[2017-01-20] MEDS: CIPROFLOXACIN 500 MG TAB PO SCH ×2 (05:42→17:07)
[2017-01-20 06:00] VITALS: BP 129/67
[2017-01-20] MEDS: NICOTINE POLACRILEX 2 MG GUM PO PRN ×3 (06:14→20:20)
[2017-01-20] MEDS: PALIPERIDONE 6 MG ER TAB (INVEGA) PO SCH ×2 (08:18→20:02)
[2017-01-20] MEDS: DIVALPROEX 250MG *ER* TAB PO SCH (08:19)
[2017-01-20] MEDS: IBUPROFEN 400 MG TAB PO PRN ×2 (09:14→20:19)
--- NOTE | 2017-01-20 09:35 | MHIPN ---
DATE: 01/19/2017 26-year-old male with history of bipolar disorder, current episode manic. SUBJECTIVE: The patient reports feeling upset because he was not allowed to use the bathroom at this time. He says that he wanted to use the bathroom, although it is not clear why he wanted to use the male shower instead of his toilet in his room. Initially, patient is insisting about being discharged this following Thursday, then he reports, tearfully, that he just spoke to his relatives and this made him feel sad because he misses them and he would like to be discharged, but then he will leave that to my criteria and he won't ask anymore to be discharged this following Thursday. OBJECTIVE: The patient's mood and affect are very labile. He is cooperative, but initially he was angry and agitated and in about five minutes he went from angry and agitation to sadness. His judgment is still not good and his impulse control needs to improve. He denies suicidal and homicidal ideation. Denies thought delusions and denies auditory and visual hallucinations. ASSESSMENT: The patient is still not ready for discharge, he is on maximum dose of medications and he is still manic. Will wait until he stabilizes, possibly between Thursday and Thursday he will be able to be discharged. Will followup.
[2017-01-20] MEDS: hydrOXYzine 25 MG TAB PO PRN (12:53)
[2017-01-20] MEDS: MAALOX 30 ML SUSP *UDC PO PRN (19:06)
[2017-01-20 19:16] VITALS: BP 125/73
[2017-01-20] MEDS: QUEtiapine FUMARATE 100 MG TAB PO SCH (20:20)
[2017-01-20] MEDS ORDERED: DIVALPROEX 500MG *ER* TAB PO SCH (21:00)
[2017-01-20] MEDS ORDERED: DEPA250T2 PO (22:01)
[2017-01-20] MEDS ORDERED: DEPA500T2 PO (22:01)
[2017-01-20] MEDS ORDERED: HYDR-3363 PO (22:01)
[2017-01-20] MEDS ORDERED: FLAG500T PO (22:01)
[2017-01-20] MEDS ORDERED: CIPR-249 PO (22:01)
[2017-01-20] MEDS ORDERED: PALI1TAB3 PO (22:01)
[2017-01-20] MEDS ORDERED: NICO2GUM62 PO (22:01)
[2017-01-20] MEDS ORDERED: QUET1TAB8 PO (22:01)
[2017-01-21] MEDS: hydrOXYzine 25 MG TAB PO PRN (03:02)
[2017-01-21] MEDS: CIPROFLOXACIN 500 MG TAB PO SCH (06:24)
[2017-01-21] MEDS: metroNIDAZOLE (FLAGYL) 500 MG TAB PO SCH (06:24)
[2017-01-21] MEDS: NICOTINE POLACRILEX 2 MG GUM PO PRN (06:43)
[2017-01-21 07:05] VITALS: BP 146/68
[2017-01-21] MEDS: IBUPROFEN 400 MG TAB PO PRN (08:46)
[2017-01-21] MEDS ORDERED: DIVALPROEX 250MG *ER* TAB PO SCH (09:00)
[2017-01-21] MEDS ORDERED: risperiDONE 3 MG TAB PO SCH (09:00)
[2017-01-21] MEDS ORDERED: PALIPERIDONE 6 MG ER TAB (INVEGA) PO SCH (09:00)
--- NOTE | 2017-01-21 12:32 | MHIPN ---
DATE OF SERVICE: 01/20/2017 26-year-old male with history of bipolar disorder, current episode manic. SUBJECTIVE: The patient reports this morning he called his mother at a quarter to six in the morning and his stepfather answered the phone and he got upset with him. He spoke briefly to his stepfather and they had a disagreement. Then he was able to speak with his mother. The patient is not able to see that this type of behavior puts him in trouble and that it is impulsive behavior that he needs to learn to control. The patient reports once again that he wants to go home, he misses his family. He denies suicidal or homicidal thoughts. He says he has been compliant with medications and with group attendance. OBJECTIVE: The patient is alert and oriented times three, cooperative, with pressured speech, and impulsive behavior reported by patient. He is able to sit calm for 15 minutes. He is not homicidal and he is not suicidal. He is not responding to internal stimuli and he is not delusional. His mood and affect are less labile than yesterday. His judgment and insight are still limited. His impulse control needs to improve. ASSESSMENT: According to patient's mother, she believes that he has improved, she feels that he is doing much better. She would like him to be discharged as he wants it. This va underwriter increased his Depakote to an extra dose of 250 mg at bedtime, increased her Atarax dose to 100 mg by mouth every 8 hours and changed paliperidone to Risperdal. Will followup and will discharge tomorrow.
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
== END 2017-01-21 10:07 | disposition home or self-care (01) | DRG 885 ==
LOC: M ED 22:47 → M ED INP 01-13 14:24 → M PSY 01-13 15:15
PROVIDERS: ADMIT Psychiatry & Neurology Psychiatry; ATTEND Psychiatry & Neurology Psychiatry
DX: F31.13 Bipolar disorder, current episode manic without psychotic features, severe (principal); F17.210 Nicotine dependence, cigarettes, uncomplicated; F10.10 Alcohol abuse, uncomplicated; F12.10 Cannabis abuse, uncomplicated; R10.32 Left lower quadrant pain; K59.00 Constipation, unspecified; Z81.8 Family history of other mental and behavioral disorders; Z91.5 Personal history of self-harm; Z91.14 Patient's other noncompliance with medication regimen; Z79.899 Other long term (current) drug therapy; Z88.6 Allergy status to analgesic agent

== ENCOUNTER → 2017-01-28 | Outpatient (CLI) | payer MEDICAID ==
[~2017-01-28] MED LIST changes: +CIPR-249 PO; +DEPA500T2 PO; +DIVA250T7 PO; +FLAG500T PO; +HYDR-3363 PO; +HYDR50TA70 PO; +INVE3TAB2 PO; +INVE6TAB3 PO; +NICO2GUM62 PO; +SERO1TAB PO
== END ==
LOC: M OUTALCOH 08:17
PROVIDERS: ATTEND Psychiatry & Neurology Psychiatry
DX: F12.20 Cannabis dependence, uncomplicated (principal); F10.10 Alcohol abuse, uncomplicated

== ENCOUNTER 2017-02-08 16:05 | Emergency (ER) | payer MEDICAID ==
[~2017-02-08] VITALS: Ht 170.2 cm; Wt 62.7 kg
[2017-02-08 16:11] VITALS: BP 129/68
[2017-02-08] MEDS ORDERED: QUET1TAB8 PO (16:36)
[2017-02-08] MEDS ORDERED: INVE234I IM (16:56)
== END 2017-02-08 17:55 | disposition left against medical advice (07) ==
LOC: EDBD 16:05 → M ED 16:05
DX: F99 Mental disorder, not otherwise specified (principal); Z53.29 Procedure and treatment not carried out because of patient's decision for other reasons

== ENCOUNTER → 2017-02-10 | Outpatient (CLI) | payer MEDICAID ==
[2017-02-10 13:09] LABS: ALBUMIN/GLOBULIN RATIO 1.18 (1.00-1.93); ALKALINE PHOSPHATASE 62 U/L (45-117); ALT/SGPT 19 U/L (12-78); AST/SGOT 12 U/L (15-37); BILIRUBIN,DIRECT < 0.1 MG/DL (0.0-0.2); BILIRUBIN,TOTAL 0.5 MG/DL (0.2-1.0); TOTAL PROTEIN 7.4 GM/DL (6.4-8.2)
== END ==
LOC: M WUC 10:17
PROVIDERS: ATTEND Psychiatry & Neurology Psychiatry
DX: Z51.81 Encounter for therapeutic drug level monitoring (principal); Z79.899 Other long term (current) drug therapy; Z91.19 Patient's noncompliance with other medical treatment and regimen

== ENCOUNTER 2017-02-13 08:00 | Outpatient (RCR) | payer MEDICAID | END 2017-02-19 | LOC: M OUTALCOH 08:00 | PROVIDERS: ATTEND Psychiatry & Neurology Psychiatry | DX: F12.20 Cannabis dependence, uncomplicated (principal); F10.10 Alcohol abuse, uncomplicated; F17.200 Nicotine dependence, unspecified, uncomplicated ==

== ENCOUNTER 2017-03-13 10:00 | Outpatient (RCR) | payer OTHER | END 2017-03-21 | LOC: M OUTALCOH 10:00 | PROVIDERS: ATTEND Psychiatry & Neurology Psychiatry | DX: F12.20 Cannabis dependence, uncomplicated (principal); F10.10 Alcohol abuse, uncomplicated; F17.200 Nicotine dependence, unspecified, uncomplicated ==

== ENCOUNTER → 2017-03-16 | Outpatient (CLI) | payer OTHER, MEDICAID | LOC: M WUC 10:15 | PROVIDERS: ATTEND Psychiatry & Neurology Psychiatry | DX: Z79.899 Other long term (current) drug therapy (principal) ==

== ENCOUNTER → 2017-04-09 | Outpatient (CLI) | payer OTHER ==
[2017-04-09 10:19] LABS: ALBUMIN/GLOBULIN RATIO 1.29 (1.00-1.93); ALKALINE PHOSPHATASE 78 U/L (45-117); ALT/SGPT 22 U/L (12-78); AST/SGOT 12 U/L (15-37); BILIRUBIN,DIRECT < 0.1 MG/DL (0.0-0.2); BILIRUBIN,TOTAL 0.3 MG/DL (0.2-1.0); TOTAL PROTEIN 7.1 GM/DL (6.4-8.2)
== END ==
LOC: M WUC 08:17
PROVIDERS: ATTEND Psychiatry & Neurology Psychiatry
DX: Z79.899 Other long term (current) drug therapy (principal)

== ENCOUNTER 2017-04-20 14:00 | Outpatient (RCR) | payer OTHER | END 2017-04-21 | LOC: M OUTALCOH 14:00 | PROVIDERS: ATTEND Psychiatry & Neurology Psychiatry | DX: F12.20 Cannabis dependence, uncomplicated (principal); F10.10 Alcohol abuse, uncomplicated; F17.200 Nicotine dependence, unspecified, uncomplicated ==

== ENCOUNTER → 2017-05-21 | Outpatient (RCR) | payer OTHER | LOC: M OUTALCOH 04-27 10:33 | PROVIDERS: ATTEND Psychiatry & Neurology Psychiatry | DX: F12.20 Cannabis dependence, uncomplicated (principal); F10.10 Alcohol abuse, uncomplicated; F17.200 Nicotine dependence, unspecified, uncomplicated ==

== ENCOUNTER 2017-05-27 13:34 | Outpatient (RCR) | payer OTHER | END 2017-06-21 | LOC: M OUTALCOH 13:34 | DX: F12.20 Cannabis dependence, uncomplicated (principal); F10.10 Alcohol abuse, uncomplicated; F17.200 Nicotine dependence, unspecified, uncomplicated ==

== ENCOUNTER → 2017-07-27 | Outpatient (CLI) | payer OTHER | LOC: M OUTALCOH 12:46 | DX: F12.20 Cannabis dependence, uncomplicated (principal) ==

== ENCOUNTER 2017-08-06 11:00 | Outpatient (RCR) | payer OTHER | END 2017-08-19 | LOC: M OUTALCOH 11:00 | DX: F12.20 Cannabis dependence, uncomplicated (principal); F10.10 Alcohol abuse, uncomplicated; F17.200 Nicotine dependence, unspecified, uncomplicated ==

== ENCOUNTER 2017-08-21 14:36 | Outpatient (RCR) | payer OTHER | END 2017-09-19 | LOC: M OUTALCOH 08-26 10:00 | DX: F12.20 Cannabis dependence, uncomplicated (principal); F10.10 Alcohol abuse, uncomplicated; F17.200 Nicotine dependence, unspecified, uncomplicated ==

== ENCOUNTER 2017-09-23 09:14 | Outpatient (RCR) | payer OTHER | END 2017-10-19 | LOC: M OUTALCOH 09:14 | DX: F12.20 Cannabis dependence, uncomplicated (principal); F10.10 Alcohol abuse, uncomplicated; F17.200 Nicotine dependence, unspecified, uncomplicated ==

== ENCOUNTER 2017-10-21 10:05 | Outpatient (RCR) | payer OTHER | END 2017-11-19 | LOC: M OUTALCOH 10:05 | DX: F12.20 Cannabis dependence, uncomplicated (principal); F10.10 Alcohol abuse, uncomplicated; F17.200 Nicotine dependence, unspecified, uncomplicated ==

== ENCOUNTER 2017-11-20 16:16 | Outpatient (RCR) | payer OTHER | END 2017-12-19 | LOC: M OUTALCOH 16:16 | DX: F12.20 Cannabis dependence, uncomplicated (principal); F10.10 Alcohol abuse, uncomplicated; F17.200 Nicotine dependence, unspecified, uncomplicated ==

== ENCOUNTER 2017-12-28 10:10 | Outpatient (RCR) | payer OTHER | END 2018-01-19 | LOC: M OUTALCOH 10:10 | DX: F12.20 Cannabis dependence, uncomplicated (principal); F10.10 Alcohol abuse, uncomplicated; F17.200 Nicotine dependence, unspecified, uncomplicated ==

== ENCOUNTER 2018-02-24 09:50 | Outpatient (RCR) | payer OTHER | END 2018-03-21 | LOC: M OUTALCOH 03-18 08:00 | DX: F12.20 Cannabis dependence, uncomplicated (principal); F10.10 Alcohol abuse, uncomplicated; F17.200 Nicotine dependence, unspecified, uncomplicated ==

== ENCOUNTER 2018-03-25 08:00 | Outpatient (RCR) | payer OTHER | END 2018-04-21 | LOC: M OUTALCOH 08:00 | DX: F12.20 Cannabis dependence, uncomplicated (principal); F10.10 Alcohol abuse, uncomplicated; F17.200 Nicotine dependence, unspecified, uncomplicated ==

== ENCOUNTER 2018-04-23 10:28 | Outpatient (RCR) | payer OTHER | END 2018-05-21 | LOC: M OUTALCOH 05-07 08:59 | DX: F12.20 Cannabis dependence, uncomplicated (principal); F10.10 Alcohol abuse, uncomplicated; F17.200 Nicotine dependence, unspecified, uncomplicated ==

== ENCOUNTER → 2018-04-30 | Outpatient (REF) | payer OTHER ==
[2018-04-30 15:14] LABS: CHLAMYDIA DNA AMPLIFICATION NEGATIVE (NEGATIVE); GC DNA AMPLIFICATION NEGATIVE (NEGATIVE)
== END ==
LOC: M SFHCPLAZ 13:10
DX: N50.819 Testicular pain, unspecified (principal)

== ENCOUNTER → 2018-05-11 | Outpatient (CLI) | payer OTHER | LOC: M RAD 09:01 | DX: K40.90 Unilateral inguinal hernia, without obstruction or gangrene, not specified as recurrent (principal); N50.819 Testicular pain, unspecified | CPT/HCPCS: 76870 ==

== ENCOUNTER → 2018-05-27 | Outpatient (CLI) | payer OTHER | LOC: M RAD 15:00 | DX: K40.90 Unilateral inguinal hernia, without obstruction or gangrene, not specified as recurrent (principal); R10.32 Left lower quadrant pain | CPT/HCPCS: 72192 ==

== ENCOUNTER 2018-05-31 00:21 | Inpatient (IN) | payer OTHER ==
[2018-05-31 01:00] LABS: HEMATOCRIT 45.7 % (42.0-52.0); MEAN CORPUSCULAR HEMOGLOBIN 32.1 pg (27.0-33.0); MEAN CORPUSCULAR VOLUME 91.8 fl (80.0-96.0); PLATELET COUNT, AUTOMATED 260 10^3/uL (150-450); RED BLOOD COUNT 4.98 10^6/uL (4.30-6.10); RED CELL DISTRIBUTION WIDTH 12.2 % (11.5-14.5); WHITE BLOOD COUNT 11.3 10^3/uL (4.0-10.0)
[2018-05-31 01:24] LABS: AMPHETAMINES LEVEL URINE NEGATIVE (NEGATIVE); BARBITURATES URINE NEGATIVE (NEGATIVE); BENZODIAZEPINES URINE NEGATIVE (NEGATIVE); CANNABINOIDS URINE NEGATIVE (NEGATIVE); COCAINE METABOLITE URINE NEGATIVE (NEGATIVE); METHADONE URINE NEGATIVE (NEGATIVE); OPIATES URINE NEGATIVE (NEGATIVE); PHENCYCLIDINE URINE NEGATIVE (NEGATIVE)
[2018-05-31 01:47] LABS: ACETAMINOPHEN LEVEL < 2.0 UG/ML (10.0-30.0); ALBUMIN 4.1 GM/DL (3.2-5.2); ALBUMIN/GLOBULIN RATIO 1.37 (1.00-1.93); ALKALINE PHOSPHATASE 88 U/L (45-117); ALT/SGPT 34 U/L (12-78); ANION GAP 10 MEQ/L (8-16); AST/SGOT 47 U/L (7-37); BILIRUBIN,DIRECT 0.1 MG/DL (0.0-0.2); BILIRUBIN,TOTAL 0.4 MG/DL (0.2-1.0); BLOOD UREA NITROGEN 9 MG/DL (7-18); CALCIUM LEVEL 8.9 MG/DL (8.5-10.1); CARBON DIOXIDE LEVEL 24 MEQ/L (21-32); CHLORIDE LEVEL 106 MEQ/L (98-107); CREATININE FOR GFR 0.79 MG/DL (0.70-1.30); ETHYL ALCOHOL (ETHANOL) 0.003 % (0.000-0.010); GLOMERULAR FILTRATION RATE > 60.0 (>60); GLUCOSE, FASTING 88 MG/DL (70-100); POTASSIUM SERUM 3.8 MEQ/L (3.5-5.1); SALICYLATE LEVEL 4.2 MG/DL (5.0-30.0); SODIUM LEVEL 140 MEQ/L (136-145); TOTAL PROTEIN 7.1 GM/DL (6.4-8.2)
[2018-05-31] MEDS ORDERED: MOM 30ML SUSPENSION UDC PO (08:15)
[2018-05-31 08:49] LABS: INFLUENZA A AMPLIFICATION NEGATIVE (NEGATIVE); INFLUENZA B AMPLIFICATION NEGATIVE (NEGATIVE)
[2018-05-31] MEDS: DIVALPROEX 500MG *ER* TAB PO ×3 (11:03→22:05)
[2018-05-31] MEDS: risperiDONE 3 MG TAB PO ×2 (11:03→22:05)
[2018-05-31] MEDS: NICOTINE 21MG/24HR 1 EA TRANSDERMAL TD (11:04)
[2018-05-31] MEDS: ACETAMINOPHEN TAB 650MG DOSE (2X325MG) PO (14:51)
[2018-05-31] MEDS: QUEtiapine FUMARATE 100 MG TAB PO (22:05)
[2018-06-01] MEDS: LORazepam 1 MG TAB PO ×2 (00:33→23:21)
[2018-06-01] MEDS: traZODone 50 MG TAB PO ×2 (00:33→23:21)
[2018-06-01 07:15] LABS: HEMATOCRIT 44.2 % (42.0-52.0); HEMOGLOBIN 15.4 g/dl (13.5-17.5); MEAN CORPUSCULAR HEMOGLOBIN 32.4 pg (27.0-33.0); MEAN CORPUSCULAR HGB CONC 34.8 g/dl (32.0-36.5); MEAN CORPUSCULAR VOLUME 92.9 fl (80.0-96.0); PLATELET COUNT, AUTOMATED 252 10^3/uL (150-450); RED BLOOD COUNT 4.76 10^6/uL (4.30-6.10); RED CELL DISTRIBUTION WIDTH 12.2 % (11.5-14.5); WHITE BLOOD COUNT 9.5 10^3/uL (4.0-10.0)
[2018-06-01] MEDS: DIVALPROEX 500MG *ER* TAB PO ×3 (08:46→20:40)
[2018-06-01] MEDS: risperiDONE 3 MG TAB PO ×2 (08:46→20:40)
[2018-06-01] MEDS: NICOTINE 21MG/24HR 1 EA TRANSDERMAL TD (08:47)
[2018-06-01] MEDS: ACETAMINOPHEN TAB 650MG DOSE (2X325MG) PO ×2 (16:23→23:21)
[2018-06-01] MEDS: QUEtiapine FUMARATE 100 MG TAB PO (20:40)
[2018-06-01] MEDS: MAALOX 30 ML SUSP *UDC PO (23:21)
[2018-06-02] MEDS: LORazepam 1 MG TAB PO (05:16)
[2018-06-02] MEDS: ACETAMINOPHEN TAB 650MG DOSE (2X325MG) PO (07:02)
[2018-06-02 07:40] LABS: VALPROIC ACID (DEPAKOTE) 65.8 UG/ML (50.0-100.0)
[2018-06-02] MEDS: risperiDONE 3 MG TAB PO ×2 (09:40→21:14)
[2018-06-02] MEDS: NICOTINE 21MG/24HR 1 EA TRANSDERMAL TD (09:40)
[2018-06-02] MEDS: DIVALPROEX 500MG *ER* TAB PO ×3 (09:40→21:14)
[2018-06-02] MEDS: QUEtiapine FUMARATE 100 MG TAB PO (21:14)
[2018-06-03] MEDS: traZODone 50 MG TAB PO (00:42)
[2018-06-03] MEDS: ACETAMINOPHEN TAB 650MG DOSE (2X325MG) PO (00:43)
[2018-06-03] MEDS: NICOTINE 21MG/24HR 1 EA TRANSDERMAL TD (08:25)
[2018-06-03] MEDS ORDERED: risperiDONE 3 MG TAB PO (21:00)
[2018-06-03] MEDS ORDERED: DIVALPROEX 500MG *ER* TAB PO (21:00)
== END 2018-06-03 14:35 | disposition home or self-care (01) | DRG 753 ==
LOC: M ED 00:21 → M ED INP 08:12 → M PSY 09:45
DX: F31.2 Bipolar disorder, current episode manic severe with psychotic features (principal); F10.10 Alcohol abuse, uncomplicated; F17.210 Nicotine dependence, cigarettes, uncomplicated; Z62.810 Personal history of physical and sexual abuse in childhood; Z88.6 Allergy status to analgesic agent

== ENCOUNTER 2018-06-09 13:27 | Emergency (ER) | payer OTHER | END 2018-06-09 15:20 | disposition home or self-care (01) | LOC: M ED 13:27 | DX: K40.20 Bilateral inguinal hernia, without obstruction or gangrene, not specified as recurrent (principal); K59.00 Constipation, unspecified; K21.9 Gastro-esophageal reflux disease without esophagitis; F41.9 Anxiety disorder, unspecified; F31.9 Bipolar disorder, unspecified; F90.9 Attention-deficit hyperactivity disorder, unspecified type; F63.9 Impulse disorder, unspecified; Z79.899 Other long term (current) drug therapy; F17.200 Nicotine dependence, unspecified, uncomplicated | CPT/HCPCS: 74018 ==

== ENCOUNTER 2018-06-11 14:20 | Emergency (ER) | payer OTHER ==
[2018-06-11 15:18] LABS: HEMATOCRIT 42.8 % (42.0-52.0); HEMOGLOBIN 15.1 g/dl (13.5-17.5); MEAN CORPUSCULAR HEMOGLOBIN 32.4 pg (27.0-33.0); MEAN CORPUSCULAR HGB CONC 35.3 g/dl (32.0-36.5); MEAN CORPUSCULAR VOLUME 91.8 fl (80.0-96.0); PLATELET COUNT, AUTOMATED 310 10^3/uL (150-450); RED BLOOD COUNT 4.66 10^6/uL (4.30-6.10); RED CELL DISTRIBUTION WIDTH 12.6 % (11.5-14.5)
[2018-06-11 15:37] LABS: AMPHETAMINES LEVEL URINE NEGATIVE (NEGATIVE); BARBITURATES URINE NEGATIVE (NEGATIVE); BENZODIAZEPINES URINE NEGATIVE (NEGATIVE); CANNABINOIDS URINE NEGATIVE (NEGATIVE); COCAINE METABOLITE URINE NEGATIVE (NEGATIVE); METHADONE URINE NEGATIVE (NEGATIVE); OPIATES URINE NEGATIVE (NEGATIVE); PHENCYCLIDINE URINE NEGATIVE (NEGATIVE)
[2018-06-11 15:55] LABS: ALBUMIN 3.9 GM/DL (3.2-5.2); ALKALINE PHOSPHATASE 86 U/L (45-117); ALT/SGPT 30 U/L (12-78); ANION GAP 8 MEQ/L (8-16); AST/SGOT 26 U/L (7-37); BILIRUBIN,DIRECT < 0.1 MG/DL (0.0-0.2); BILIRUBIN,TOTAL 0.3 MG/DL (0.2-1.0); BLOOD UREA NITROGEN 12 MG/DL (7-18); CALCIUM LEVEL 9.6 MG/DL (8.5-10.1); CARBON DIOXIDE LEVEL 26 MEQ/L (21-32); CHLORIDE LEVEL 107 MEQ/L (98-107); CREATININE FOR GFR 0.83 MG/DL (0.70-1.30); GLOMERULAR FILTRATION RATE > 60.0 (>60); GLUCOSE, FASTING 79 MG/DL (70-100); POTASSIUM SERUM 4.2 MEQ/L (3.5-5.1); SALICYLATE LEVEL 2.7 MG/DL (5.0-30.0); SODIUM LEVEL 141 MEQ/L (136-145); TOTAL PROTEIN 6.9 GM/DL (6.4-8.2)
[2018-06-11 15:57] LABS: ACETAMINOPHEN LEVEL < 2.0 UG/ML (10.0-30.0); ETHYL ALCOHOL (ETHANOL) < 0.003 % (0.000-0.010)
== END 2018-06-11 17:35 | disposition home or self-care (01) ==
LOC: M ED 14:20
DX: F20.9 Schizophrenia, unspecified (principal); Z79.899 Other long term (current) drug therapy
CPT/HCPCS: 80320

== ENCOUNTER 2018-06-14 09:19 | Outpatient (RCR) | payer OTHER ==
[~2018-06-14 09:19] MED LIST changes: +DIVA500T9 PO; +IBUP-1022 PO; +MIRA3350 PO; +NAPR-885 PO; -NAPR500T3 PO; +QUET1TAB8; +RISP3TAB20 PO; +TRAZ-163 PO
== END 2018-06-21 ==
LOC: M OUTALCOH 09:19
PROVIDERS: ATTEND Psychiatry & Neurology Psychiatry
DX: F12.20 Cannabis dependence, uncomplicated (principal); F10.10 Alcohol abuse, uncomplicated; F17.200 Nicotine dependence, unspecified, uncomplicated

== ENCOUNTER 2018-07-05 09:15 | Outpatient (RCR) | payer OTHER ==
[~2018-07-05 09:15] MED LIST changes: -QUET1TAB8
[2018-07-19] MEDS ORDERED: INVE234I IM (13:41)
== END 2018-07-22 ==
LOC: M OUTALCOH 09:15
PROVIDERS: ATTEND Psychiatry & Neurology Psychiatry
DX: F12.20 Cannabis dependence, uncomplicated (principal); F10.10 Alcohol abuse, uncomplicated; F17.200 Nicotine dependence, unspecified, uncomplicated

== ENCOUNTER 2018-07-27 06:11 | Day surgery (SDC) | payer OTHER ==
[~2018-07-27] VITALS: Ht 170.2 cm; Wt 68.2 kg
[~2018-07-27 06:11] MED LIST changes: +LR 1,000 ML IV ONE; +ceFAZolin SOD 1 GM in D5W MINI-BAG PLUS 50 ML IV ONE
[2018-07-27] MEDS ORDERED: BUPIVACAINE/EPIN 0.25% 30 ML VIAL As Ordered ONE (07:13)
[2018-07-27] MEDS ORDERED: ONDANSETRON 4MG/2ML VIAL (J2405) As Ordered ONE ×2 (07:52→10:24)
[2018-07-27] MEDS ORDERED: ROCURONIUM BROMIDE 50 MG/5 ML VIAL As Ordered ONE ×2 (07:52→08:02)
[2018-07-27] MEDS ORDERED: LIDOCAINE 2% INJ 100 MG/5 ML SDV (FOR ANES.) As Ordered ONE (07:52)
[2018-07-27] MEDS ORDERED: PROPOFOL 200 MG/20 ML VIAL As Ordered ONE (07:52)
[2018-07-27] MEDS ORDERED: MIDAZOLAM INJ 2 MG/2 ML VIAL (J2250) As Ordered ONE (07:52)
[2018-07-27] MEDS ORDERED: fentaNYL 250 MCG/5 ML INJECTION (J3010) As Ordered ONE (07:52)
[2018-07-27] MEDS ORDERED: dexameTHASONE 4 MG/ML 1ML VIAL (J1100) As Ordered ONE (07:52)
[2018-07-27] MEDS ORDERED: DESFLURANE 240 ML INHALANT As Ordered ONE (08:06)
[2018-07-27] MEDS ORDERED: SUGAMMADEX SODIUM 500 MG/5 ML VIAL (BRIDION) As Ordered ONE (08:23)
[2018-07-27] MEDS ORDERED: KETOROLAC 60 MG/2 ML VIAL (J1885) As Ordered ONE (08:24)
[2018-07-27] MEDS ORDERED: fentaNYL 100 MCG/2 ML INJECTION (J3010) As Ordered ONE (10:24)
[2018-07-27] MEDS ORDERED: PERCOCET 5MG/325MG TAB As Ordered ONE (10:24)
[2018-07-27] MEDS: fentaNYL 100 MCG/2 ML INJECTION (J3010) IV PRN ×4 (10:25→10:54)
[2018-07-27] MEDS ORDERED: LR 1,000 ML IV SCH ×2 (10:30→10:45)
[2018-07-27] MEDS ORDERED: ONDANSETRON 4MG/2ML VIAL (J2405) IV PRN ×2 (10:30→10:45)
[2018-07-27] MEDS ORDERED: NORCO, ANEXSIA 5/325MG TABLET (HYDROcodone/ACETAMINOPHEN) PO PRN (10:30)
[2018-07-27] MEDS ORDERED: MORPHINE 2 MG/ML 1ML SYRINGE (J2270) IV PRN (10:30)
[2018-07-27] MEDS ORDERED: PERCOCET 5MG/325MG TAB PO PRN (10:45)
--- NOTE | 2018-07-27 10:46 | RO ---
DATE OF PROCEDURE: 07/27/2018 PREOPERATIVE DIAGNOSIS: Bilateral inguinal hernia. POSTOPERATIVE DIAGNOSIS: Incarcerated bilateral inguinal hernias (indirect). SURGEON: Drew Wilkinson Jr., MD PHARMACY ORDER ENTRY TECHNICIAN: ROSEANNA Govea (provided instrument exchange, trocar placement, and abdominal wall closure) PROCEDURE: Robotic-assisted bilateral inguinal hernia repair with ProGrip mesh. ESTIMATED BLOOD LOSS (EBL): Was minimal. FLUIDS: Crystalloid. BRIEF PROCEDURE SUMMARY: The patient was brought to the operating room, was given general anesthesia. After adequate anesthesia and preoperative antibiotics were given, the patient was prepped and draped in usual sterile fashion. Next, a supraumbilical incision was made with skin knife. Blunt dissection was carried down to fascia. The fascia was entered with a Veress needle and insufflated to 15 mm of pressure, and a 5-mm trocar was placed under direct visualization into the peritoneal cavity. The patient was placed in a steep Trendelenburg position, and two lateral 8-mm trocars were placed, and the camera port was replaced at the umbilicus. The patient had bilateral inguinal hernias, and there was omentum in both inguinal hernias; and, unfortunately, I could not reduce these completely. The patient was in this Trendelenburg position. In any case, at this point, the robot was docked without difficulty, and the both areas, inguinal hernias that had omentum within it were dissected out, and the omentum was adherent on the peritoneum just at the opening but also into the canal itself and was adherent on its end/tip in the distal portion of the inguinal canal. This was transected, the omentum distally. Good hemostasis was achieved with electrocautery, and this was repeated for both sides. The left side had a large portion of omentum in this and was much more fibrotic and adherent but was able to be eventually reduced. The peritoneum then was taken down off the right abdominal wall, and a peritoneal flap was created with blunt dissection; and eventually, the hernia sac was mobilized quite nicely off the cord structures, as well, and Diogenes ligament clear area was obtained; and then the left inguinal area was dissected out in much the same manner. There was a small branch that was coming off the epigastrics laterally just on the abdominal wall that with blunt dissection was oozing minimally. However, this was controlled with electrocautery. There were also some numerous areas of fibrosis in the inguinal canal on this side that were just a little bit more difficult to dissect down and were oozing a little bit. This was controlled well with electrocautery, as well. Eventually, once the peritoneal flap was created and the hernia sac was dissected distally, I was able to get this off the vas and the cord structures, and a small rent was made in the hernia sac to evaluate the hernia sac itself when I was dissecting distally and taking care to make sure I could stay on the hernia sac itself. This helped in the dissection; and eventually, I was able to come around the hernia sac nicely and dissect this off the tissue in this area. It was dissected off the vessels, as well as off Diogenes's. The loose areolar tissue were taken down in this area, and the ProGrip mesh was placed in the preperitoneal space bilaterally, pressed into position. There was somewhat of a drop-off where the vas dove deep and the iliac vessels were bilaterally. I slit the mesh just a little bit to allow the mesh medial to this to lay on Diogenes ligament a little bit nicer; and then, the peritoneum was closed with a running V-Loc suture bilaterally. All trocars were removed under direct visualization. 4-0 Vicryl was used to close all incisions. Steri-Strips and a dry sterile dressing were applied. The patient was awakened, extubated, and brought to the recovery room awake, alert, and hemodynamically stable. Sponge and needle counts are correct times two.
[2018-07-27 11:30] VITALS: BP 155/84
[2018-07-27] MEDS ORDERED: KETOROLAC 30 MG/ML VIAL (J1885) IV SCH (15:00)
== END 2018-07-27 11:56 | disposition home or self-care (01) ==
LOC: M SDC 06:11
PROVIDERS: ATTEND Surgery
DX: K40.00 Bilateral inguinal hernia, with obstruction, without gangrene, not specified as recurrent (principal); F31.9 Bipolar disorder, unspecified; F41.9 Anxiety disorder, unspecified; K52.89 Other specified noninfective gastroenteritis and colitis; Z79.899 Other long term (current) drug therapy; F17.210 Nicotine dependence, cigarettes, uncomplicated
CPT/HCPCS: 49650; C1781; J0690; J1100; J1885; J2250; J2405; J3010

== ENCOUNTER 2020-10-04 11:27 | Emergency (ER) | payer OTHER ==
[~2020-10-04 11:27] MED LIST changes: +HYDR1TAB33 PO; -HYDRO50TAB PO; -LR 1,000 ML IV ONE; +NICO-13 PO; -NICO2GUM62 PO; +QUET100T2 PO; -QUET1TAB8 PO; -TRAZ-163 PO; +TRAZ-257 PO; -ceFAZolin SOD 1 GM in D5W MINI-BAG PLUS 50 ML IV ONE
[2020-10-04 14:42] LABS: HEMATOCRIT 46.1 % (42.0-52.0); HEMOGLOBIN 15.8 g/dl (13.5-17.5); MEAN CORPUSCULAR HEMOGLOBIN 32.8 pg (27.0-33.0); MEAN CORPUSCULAR HGB CONC 34.3 g/dl (32.0-36.5); MEAN CORPUSCULAR VOLUME 95.6 fl (80.0-96.0); PLATELET COUNT, AUTOMATED 278 10^3/uL (150-450); RED BLOOD COUNT 4.82 10^6/uL (4.30-6.10); WHITE BLOOD COUNT 12.2 10^3/uL (4.0-10.0)
[2020-10-04 15:04] LABS: AMPHETAMINES LEVEL URINE NEGATIVE (NEGATIVE); BARBITURATES URINE NEGATIVE (NEGATIVE); BENZODIAZEPINES URINE NEGATIVE (NEGATIVE); CANNABINOIDS URINE POSITIVE (NEGATIVE); COCAINE METABOLITE URINE NEGATIVE (NEGATIVE); METHADONE URINE NEGATIVE (NEGATIVE); OPIATES URINE NEGATIVE (NEGATIVE); PHENCYCLIDINE URINE NEGATIVE (NEGATIVE)
[2020-10-04 15:14] LABS: ALBUMIN 4.4 GM/DL (3.2-5.2); ALT/SGPT 31 U/L (12-78); BILIRUBIN,DIRECT < 0.1 MG/DL (0.0-0.2); BILIRUBIN,TOTAL 0.5 MG/DL (0.2-1.0); BLOOD UREA NITROGEN 12 MG/DL (7-18); CALCIUM LEVEL 10.2 MG/DL (8.5-10.1); CARBON DIOXIDE LEVEL 25 MEQ/L (21-32); CHLORIDE LEVEL 110 MEQ/L (98-107); CREATININE FOR GFR 0.59 MG/DL (0.70-1.30); ETHYL ALCOHOL (ETHANOL) < 0.003 % (0.000-0.010); GLOMERULAR FILTRATION RATE > 60.0 (>60); GLUCOSE, FASTING 81 MG/DL (70-100); POTASSIUM SERUM 3.9 MEQ/L (3.5-5.1); SALICYLATE LEVEL 4.4 MG/DL (5.0-30.0); SODIUM LEVEL 141 MEQ/L (136-145); THYROID STIMULATING HORMONE 0.813 uIU/ML (0.358-3.740); TOTAL PROTEIN 7.5 GM/DL (6.4-8.2)
[2020-10-04 15:15] LABS: ACETAMINOPHEN LEVEL < 2.0 UG/ML (10.0-30.0)
[2020-10-04 18:01] VITALS: BP 136/99
== END 2020-10-04 18:02 | disposition home or self-care (01) ==
LOC: M ED 11:27
DX: F20.9 Schizophrenia, unspecified (principal); F31.9 Bipolar disorder, unspecified; F90.9 Attention-deficit hyperactivity disorder, unspecified type; K21.9 Gastro-esophageal reflux disease without esophagitis; F17.210 Nicotine dependence, cigarettes, uncomplicated; F12.20 Cannabis dependence, uncomplicated

== ENCOUNTER → 2020-11-01 | Outpatient (REF) | payer OTHER | LOC: M SFHCPLAZ 12:13 | PROVIDERS: ATTEND Family Medicine | DX: Z72.52 High risk homosexual behavior (principal) ==

== ENCOUNTER → 2020-11-02 | Outpatient (REF) | payer OTHER ==
[2020-11-02 17:18] LABS: CHLAMYDIA DNA AMPLIFICATION NEGATIVE (NEGATIVE); GC DNA AMPLIFICATION NEGATIVE (NEGATIVE)
== END ==
LOC: M SFHCPLAZ 14:45
PROVIDERS: ATTEND Family Medicine
DX: Z72.52 High risk homosexual behavior (principal)

== ENCOUNTER → 2021-06-19 | Outpatient (REF) | payer OTHER | LOC: M SFHCPLAZ 10:42 | PROVIDERS: ATTEND Family Medicine | DX: Z00.00 Encounter for general adult medical examination without abnormal findings (principal); Z72.52 High risk homosexual behavior; Z53.8 Procedure and treatment not carried out for other reasons ==

== ENCOUNTER → 2023-05-21 | Outpatient (REF) | payer OTHER | LOC: M SFHCPLAZ 15:52 | PROVIDERS: ATTEND Student in an Organized Health Care Education/Training Program | DX: Z00.00 Encounter for general adult medical examination without abnormal findings (principal) ==